=== PATIENT | female | born 1945 | race American Indian/Alaskan Native ===

== ENCOUNTER 2017-11-20 09:12 | Day surgery (SDC) | payer MEDICARE ==
[2017-11-18 14:51] VITALS: BMI 20.5
[2017-11-20] MEDS ORDERED: Propofol 10 mg/ml Inj (20 ML) ONE (11:45)
[2017-11-20] MEDS ORDERED: ePHEDrine 50 mg/ml Inj ONE (12:22)
[2017-11-20] MEDS ORDERED: Lactated Ringer's 500 ML IV ONE (13:15)
[2017-11-20 13:53] VITALS: BP 100/64; PULSE 88; RESP 16; TEMP 98; O2SAT 97
== END 2017-11-20 14:04 | disposition home or self-care (01) ==
LOC: C.ENDO 09:12
PROVIDERS: ATTEND Internal Medicine Gastroenterology
DX: R63.4 Abnormal weight loss (principal); F03.90 Unspecified dementia, unspecified severity, without behavioral disturbance, psychotic disturbance, mood disturbance, and anxiety; K64.0 First degree hemorrhoids; K57.30 Diverticulosis of large intestine without perforation or abscess without bleeding; D12.3 Benign neoplasm of transverse colon; D12.0 Benign neoplasm of cecum
CPT/HCPCS: 45380; 45385; 88305; J2704; J7120

== ENCOUNTER 2017-11-29 12:33 | Inpatient (IN) | payer MEDICARE ==
[2017-11-29 12:33] VITALS: BMI 20.5
--- NOTE | 2017-11-29 14:15 | C.PDOC ---
History Of Present Illness 72 year old female presents to ED with who reports she has increasing weakness and weight loss for the past 1-2 months. He also reports increasing inability to ambulate, secondary to weakness, poor appetite. states she had a colonoscopy 2 weeks ago. Denies any pain, cough, fever, vomiting, blood in stool, dark/black stool, blood in urine. Chief Complaint (Nursing): Weakness/Neurological Deficit History Per: Family () History/Exam Limitations: no limitations Onset/Duration Of Symptoms: Days Current Symptoms Are (Timing): Still Present Recent travel outside of the [place]: No Past Medical History Reviewed: Historical Data, Nursing Documentation, Vital Signs Vital Signs: Last Vital Signs Temp 98.1 F 11/29/17 17:56 Pulse 68 11/29/17 17:56 Resp 18 11/29/17 17:56 BP 139/73 11/29/17 17:56 Pulse Ox 100 11/29/17 17:56 - Medical History PMH: Dementia, Hypothyroidism (NO MEDICATIONS PRESENTLY) Denies: Diabetes, Fractures, Hepatitis, Chronic Kidney Disease, Seizures, Sexually Transmitted Disease Surgical History: No Surg Hx Denies: Pacemaker Family History: States: No Known Family Hx - Social History Hx Alcohol Use: No Hx Substance Use: No - Immunization History Hx Influenza Vaccination: Yes Hx Pneumococcal Vaccination: Yes Review Of Systems Except As Marked, All Systems Reviewed And Found Negative. Constitutional: Positive for: Weakness (increasing), Weight loss (increasing), Other (poor appetite). Negative for: Fever Cardiovascular: Negative for: Chest Pain Respiratory: Negative for: Cough Gastrointestinal: Negative for: Vomiting, Hematochezia, Other (no dark/black stool) Genitourinary: Negative for: Hematuria Physical Exam - Physical Exam Appears: Non-toxic, No Acute Distress Skin: Warm, Dry Head: Atraumatic, Normacephalic Eye(s): bilateral: PERRL, EOMI, Conjunctiva Pale (slightly) Neck: Supple Chest: Symmetrical Cardiovascular: Rhythm Regular, No Murmur Respiratory: Normal Breath Sounds, No Rales, No Rhonchi, No Wheezing Gastrointestinal/Abdominal: Soft, No Tenderness, No Distention Extremity: Normal ROM Neurological/Psych: Oriented x3 ED Course And Treatment - Laboratory Results Result Diagrams: 11/29/17 15:11 11/29/17 15:11 O2 Sat by Pulse Oximetry: 98 (RA) Pulse Ox Interpretation: Normal Medical Decision Making Medical Decision Making: Impression: Generalized weakness Plan: * EKG * Labs * IV fluids * Urinalysis Disposition - Disposition Disposition Time: 16:00 Condition: FAIR - Clinical Impression Clinical Impression: Muscle weakness, Dehydration - Scribe Statement The provider has reviewed the documentation as recorded by the Tiffanyibe Brian Hairston Provider Attestation: All medical record entries made by the Xiomara were at my direction and personally dictated by me. I have reviewed the chart and agree that the record accurately reflects my personal performance of the history, physical exam, medical decision making, and the department course for this patient. I have also personally directed, reviewed, and agree with the discharge instructions and disposition.
[2017-11-29] MEDS: Sodium Chloride 0.9% 1,000 ML IV SCH (15:10)
[2017-11-29 15:16] LABS: BASO % 0.5 % (0.0-2.0); EOS % 0.1 % (0.0-4.0); HEMOGLOBIN 12.4 g/dL (11.0-16.0); LYMPH % 12.5 % (20.0-40.0); MEAN CELL VOLUME 87.4 fL (81.0-99.0); MEAN CORPUSCULAR HEMOGLOBIN 28.8 pg (27.0-31.0); MEAN CORPUSCULAR HGB CONC 32.9 g/dL (33.0-37.0); MEAN PLATELET VOLUME 8.2 fL (7.2-11.7); MONO # 0.7 K/uL (0.0-0.8); MONO % 8.5 % (0.0-10.0); NEUT # 6.2 K/uL (1.8-7.0); NEUT % 78.4 % (50.0-75.0); NRBC % 0.1 % (0.0-2.0); RBC 4.31 Mil/uL (3.80-5.20); RED CELL DISTRIBUTION WIDTH 15.5 % (11.5-14.5); WHITE BLOOD COUNT 7.9 K/uL (4.8-10.8)
[2017-11-29 16:03] LABS: ALB/GLOB RATIO 1.3 (1.0-2.1); ALBUMIN 3.9 g/dL (3.5-5.0); ALT/SGPT 24 U/L (9-52); AST/SGOT 21 U/L (14-36); BLOOD UREA NITROGEN 6 mg/dL (7-17); CALCIUM 10.5 mg/dl (8.6-10.4); GFR AFRICAN-AMERICAN > 60; GFR NON-AFRICAN AMERICAN > 60; LIPASE 36 U/L (23-300)
[2017-11-29 17:54] LABS: SQUAMOUS EPITHIAL 2 /hpf (0-5); URINE BACTERIA RARE (<OCC); URINE BILIRUBIN NEGATIVE (NEGATIVE); URINE CLARITY Clear (Clear); URINE COLOR Yellow (YELLOW); URINE GLUCOSE (UA) NORMAL (Normal); URINE LEUKOCYTE ESTERASE NEG Leu/uL (Negative); URINE PROTEIN NEGATIVE (NEGATIVE); URINE UROBILINOGEN NORMAL mg/dL (0.2-1.0)
[2017-11-29] MEDS ORDERED: Potassium Chloride 20 mEq/15 ml LIQ UD PO STA (17:57)
[2017-11-29 18:06] LABS: URINE BLOOD TRACE (NEGATIVE)
[2017-11-29] MEDS ORDERED: Potassium Chloride 20 mEq/15 ml LIQ UD ONE (18:15)
--- NOTE | 2017-11-29 18:15 | RAD ---
Chest x-ray single frontal view History: Infiltrate. Comparison: 05/26/2015 Findings: Hyperinflation suggestive for COPD and or emphysematous changes. Biapical pleural thickening with upper lobe granulomatous changes. Diffuse increased interstitial lung markings. Patchy increased markings at the left lung base with a few scattered nodular densities. Lobulated pleural based density seen along the lateral aspect of the left lower lung zone. This may be related to overlying soft tissue artifact however underlying pleural-based lesion cannot be excluded. Repeat x-ray with a dedicated PA and lateral view and or correlation with chest CT would helpful for further evaluation if clinically indicated. This was not noted on the prior study dated 05/26/2015. Soft tissue calcifications seen at the level of the left breast/axilla. Correlation with mammogram would be helpful if clinically indicated. Degenerative changes in the spine. Impression: Hyperinflation suggestive for COPD and or emphysematous changes. Biapical pleural thickening with upper lobe granulomatous changes. Diffuse increased interstitial lung markings. Patchy increased markings at the left lung base with a few scattered nodular densities. Clinical correlation. Lobulated pleural based density seen along the lateral aspect of the left lower lung zone. This may be related to overlying soft tissue artifact however underlying pleural-based lesion cannot be excluded. Repeat x-ray with a dedicated PA and lateral view and or correlation with chest CT would helpful for further evaluation if clinically indicated. This was not noted on the prior study dated 05/26/2015. Soft tissue calcifications seen at the level of the left breast/axilla. Correlation with mammogram would be helpful if clinically indicated.
--- NOTE | 2017-11-29 18:43 | CP.PCM.HP ---
<Jonathan Gonzalez - Last Filed: 11/29/17 22:09> History of Present Illness - History of Present Illness History of Present Illness: Resident History & Physical for Hospitalist Service Patient is a 72 year old female with past medical history of hypothyroidism, dementia, constipation presenting with chief complaint of weakness over the past few months. This has been accompanied by loss of appetite and weight loss. Patient states that she is unable to complete normal activities as she used to. Today, patient was unable to get out of bed, which prompted her arrival to the ED. Denies falls or recent trauma. Denies fevers, chills, headache, dizziness, chest pain, shortness of breath, abdominal pain, changes in bowel movements, dysuria. Past medical history: hypothyroidism, dementia, constipation Past surgical history: ovarian cyst removal Social history: denies alcohol, tobacco, recreational drug use Family history: none Allergies: NKDA PMD: Dr. Patterson Present on Admission - Present on Admission Any Indicators Present on Admission: No Past Patient History - Past Medical History & Family History Past Medical History?: Yes - Past Social History Smoking Status: Never Smoked - CARDIAC Hx Pacemaker: No - PULMONARY Hx Respiratory Disorders: No Hx Tuberculosis: No - NEUROLOGICAL Hx Dementia: Yes Hx Seizures: No - HEENT Hx HEENT Problems: No - RENAL Hx Chronic Kidney Disease: No - ENDOCRINE/METABOLIC Hx Hypothyroidism: Yes (NO MEDICATIONS PRESENTLY) - INTEGUMENTARY Hx Dermatological Problems: No - MUSCULOSKELETAL/RHEUMATOLOGICAL Hx Fractures: No - GASTROINTESTINAL Hx Gastrointestinal Disorders: Yes (CONSTIPATION) - GENITOURINARY/GYNECOLOGICAL Hx Sexually Transmitted Disorders: No - PSYCHIATRIC Hx Substance Use: No - SURGICAL HISTORY Hx Surgeries: Yes Hx Herniorrhaphy: Yes Other/Comment: OVARIAN CYST REMOVAL - ANESTHESIA Hx Anesthesia: Yes Hx Anesthesia Reactions: No Hx Malignant Hyperthermia: No Meds Allergies/Adverse Reactions: Allergies Allergy/AdvReac Type Severity Reaction Status Date / Time No Known Allergies Allergy Verified 05/27/15 15:53 Physical Exam - Constitutional Appears: Non-toxic, No Acute Distress - Head Exam Head Exam: ATRAUMATIC, NORMOCEPHALIC - Eye Exam Eye Exam: EOMI, Normal appearance, PERRL - ENT Exam ENT Exam: Mucous Membranes Moist, Normal Exam - Neck Exam Neck exam: Positive for: Normal Inspection. Negative for: Tenderness - Respiratory Exam Respiratory Exam: Clear to Auscultation Bilateral, NORMAL BREATHING PATTERN. absent: Respiratory Distress - Cardiovascular Exam Cardiovascular Exam: REGULAR RHYTHM, +S1, +S2 - GI/Abdominal Exam GI & Abdominal Exam: Normal Bowel Sounds, Soft. absent: Organomegaly, Rebound, Rigid, Tenderness - Extremities Exam Extremities exam: Positive for: normal capillary refill, normal inspection, pedal pulses present. Negative for: calf tenderness - Back Exam Back exam: NORMAL INSPECTION - Neurological Exam Neurological exam: Alert, CN II-XII Intact, Oriented x3 - Psychiatric Exam Psychiatric exam: Normal Affect, Normal Mood - Skin Skin Exam: Dry, Intact, Normal Color Results - Vital Signs Recent Vital Signs: Last Vital Signs Temp 98.1 F 11/29/17 17:56 Pulse 68 11/29/17 17:56 Resp 18 11/29/17 17:56 BP 139/73 11/29/17 17:56 Pulse Ox 100 11/29/17 17:56 - Labs Result Diagrams: 11/29/17 15:11 11/29/17 15:11 Labs: Laboratory Results - last 24 hr 11/29/17 11/29/17 11/29/17 15:11 15:11 17:47 WBC 7.9 RBC 4.31 Hgb 12.4 Hct 37.7 MCV 87.4 MCH 28.8 MCHC 32.9 L RDW 15.5 H Plt Count 378 MPV 8.2 Neut % (Auto) 78.4 H Lymph % (Auto) 12.5 L [place] % (Auto) 8.5 Eos % (Auto) 0.1 Baso % (Auto) 0.5 Neut # (Auto) 6.2 Lymph # (Auto) 1.0 [place] # (Auto) 0.7 Eos # (Auto) 0.0 Baso # (Auto) 0.0 Sodium 145 Potassium 3.1 L Chloride 103 Carbon Dioxide 24 Anion Gap 22 H BUN 6 L Creatinine 0.7 Est GFR ( Amer) > 60 Est GFR (Non-Af Amer) > 60 Random Glucose 45 L Calcium 10.5 H Total Bilirubin 0.9 AST 21 ALT 24 Alkaline Phosphatase 52 Troponin I < 0.0120 Total Protein 6.9 Albumin 3.9 Globulin 3.0 Albumin/Globulin Ratio 1.3 Lipase 36 TSH 3rd Generation 1.06 Urine Color Yellow Urine Clarity Clear Urine pH 6.0 Ur Specific [place] 1.011 Urine Protein Negative Urine Glucose (UA) Normal Urine Ketones 2+ H Urine Blood Trace H Urine Nitrate Negative Urine Bilirubin Negative Urine Urobilinogen Normal Ur Leukocyte Esterase Neg Urine WBC (Auto) 1 Urine RBC (Auto) 1 Ur Squamous Epith Cells 2 Urine Bacteria Rare Assessment & Plan - Assessment and Plan (Free Text) Plan: Weakness - Likely secondary to hypoglycemia - Random glucose in ED 45 - Recent colonoscopy from 11/2017 shows sigmoid diverticulosis, colon polyps, internal hemorrhoids. Polyps were removed. - CXR shows hyperinflation suggestive for COPD. Biapical pleural thickening with upper lobe granulomatous changes. Patchy increased markings at left lung base with few scattered nodular densities. Please see full report. - UA shows 2+ ketones, trace blood - D5 NS at 80 ccs/hr - Accuchecks q2H - Nutrition consult - Fall precautions - Followup head CT Hypokalemia - Potassium 3.1 - Total 60 meq given in ED - Continue to monitor and replete PPX - Heparin 5000 U SC Q8H - No GI ppx indicated at this time Jonathan Gonzalez PGY-1 - Date & Time Date: 11/29/17 Time: 20:00 <Andrea Gresham - Last Filed: 11/30/17 06:36> Results - Vital Signs Recent Vital Signs: Last Vital Signs Temp 98.2 F 11/30/17 00:00 Pulse 82 11/30/17 00:00 Resp 20 11/30/17 00:00 BP 124/79 11/30/17 00:00 Pulse Ox 94 L 11/30/17 00:00 - Labs Result Diagrams: 11/29/17 15:11 11/30/17 02:44 Labs: Laboratory Results - last 24 hr 11/29/17 11/29/17 11/29/17 15:11 15:11 17:47 WBC 7.9 RBC 4.31 Hgb 12.4 Hct 37.7 MCV 87.4 MCH 28.8 MCHC 32.9 L RDW 15.5 H Plt Count 378 MPV 8.2 Neut % (Auto) 78.4 H Lymph % (Auto) 12.5 L [place] % (Auto) 8.5 Eos % (Auto) 0.1 Baso % (Auto) 0.5 Neut # (Auto) 6.2 Lymph # (Auto) 1.0 [place] # (Auto) 0.7 Eos # (Auto) 0.0 Baso # (Auto) 0.0 Sodium 145 Potassium 3.1 L Chloride 103 Carbon Dioxide 24 Anion Gap 22 H BUN 6 L Creatinine 0.7 Est GFR ( Amer) > 60 Est GFR (Non-Af Amer) > 60 Random Glucose 45 L Calcium 10.5 H Phosphorus Magnesium Total Bilirubin 0.9 AST 21 ALT 24 Alkaline Phosphatase 52 Troponin I < 0.0120 Total Protein 6.9 Albumin 3.9 Globulin 3.0 Albumin/Globulin Ratio 1.3 Lipase 36 TSH 3rd Generation 1.06 Urine Color Yellow Urine Clarity Clear Urine pH 6.0 Ur Specific [place] 1.011 Urine Protein Negative Urine Glucose (UA) Normal Urine Ketones 2+ H Urine Blood Trace H Urine Nitrate Negative Urine Bilirubin Negative Urine Urobilinogen Normal Ur Leukocyte Esterase Neg Urine WBC (Auto) 1 Urine RBC (Auto) 1 Ur Squamous Epith Cells 2 Urine Bacteria Rare 11/29/17 11/29/17 11/30/17 21:41 23:33 02:44 WBC RBC Hgb Hct MCV MCH MCHC RDW Plt Count MPV Neut % (Auto) Lymph % (Auto) [place] % (Auto) Eos % (Auto) Baso % (Auto) Neut # (Auto) Lymph # (Auto) [place] # (Auto) Eos # (Auto) Baso # (Auto) Sodium 142 Potassium 3.3 L Chloride 109 H Carbon Dioxide 24 Anion Gap 13 BUN 3 L Creatinine 0.6 L Est GFR ( Amer) > 60 Est GFR (Non-Af Amer) > 60 Random Glucose 159 H Calcium 9.1 Phosphorus 2.4 L Magnesium 1.3 L Total Bilirubin 0.7 AST 19 ALT 18 Alkaline Phosphatase 36 L D Troponin I < 0.0120 < 0.0120 Total Protein 5.3 L Albumin 2.7 L D Globulin 2.6 Albumin/Globulin Ratio 1.0 Lipase TSH 3rd Generation Urine Color Urine Clarity Urine pH Ur Specific [place] Urine Protein Urine Glucose (UA) Urine Ketones Urine Blood Urine Nitrate Urine Bilirubin Urine Urobilinogen Ur Leukocyte Esterase Urine WBC (Auto) Urine RBC (Auto) Ur Squamous Epith Cells Urine Bacteria Assessment & Plan - Date & Time Date: 11/29/17 (I have seen and examined the patient. I agree with the findings and plan of care as documented by Dr. Gonzalez. Patient with weakness. Check CT head. May be due to hypoglycemia. Accuchecks. D5 NS. Hypokalemia. Replete potassium. Monitor for acute changes.) Time: 06:35 Attending/Attestation - Attestation I have personally seen and examined this patient.: Yes I have fully participated in the care of the patient.: Yes I have reviewed all pertinent clinical information: Yes
[2017-11-29] MEDS: Dextrose 5%/0.9% NS 1,000 ML IV SCH (20:35)
[2017-11-30 01:07] VITALS: RESP 20
[2017-11-30 03:19] LABS: ALBUMIN 2.7 g/dL (3.5-5.0); ALT/SGPT 18 U/L (9-52); AST/SGOT 19 U/L (14-36); BLOOD UREA NITROGEN 3 mg/dL (7-17); CALCIUM 9.1 mg/dl (8.6-10.4); GFR AFRICAN-AMERICAN > 60; GFR NON-AFRICAN AMERICAN > 60
[2017-11-30] MEDS: Sodium Chloride 0.9% 1,000 ML IV SCH ×3 (05:31→21:05)
[2017-11-30] MEDS ORDERED: Glucagon Recombinant 1 mg Inj IM PRN (07:13)
[2017-11-30] MEDS ORDERED: Dextrose 50% SYRINGE Inj (50 ml) IV PRN (07:13)
--- NOTE | 2017-11-30 07:25 | CT ---
Date of service: 11/29/2017 PROCEDURE: CT HEAD WITHOUT CONTRAST. HISTORY: Weakness COMPARISON: None available. TECHNIQUE: Axial computed tomography images were obtained through the head/brain without intravenous contrast. Radiation dose: Total exam DLP = 874 mGy-cm. This CT exam was performed using one or more of the following dose reduction techniques: Automated exposure control, adjustment of the mA and/or kV according to patient size, and/or use of iterative reconstruction technique. FINDINGS: HEMORRHAGE: No intracranial hemorrhage. BRAIN: Moderate atrophy. Scattered focal lucencies in the subcortical and periventricular white matter suggestive for chronic microvascular ischemic change. Small left basal ganglia lacunar infarct. VENTRICLES: Unremarkable. No hydrocephalus. CALVARIUM: Unremarkable. PARANASAL SINUSES: Scattered mucosal thickening of the ethmoid air cells. MASTOID AIR CELLS: Unremarkable as visualized. No inflammatory changes. OTHER FINDINGS: Degenerative changes in the temporomandibular joints. Mild atherosclerotic disease of the intracranial arteries. IMPRESSION: No acute intracranial abnormality. Chronic microvascular ischemic changes. Moderate atrophy. Additional findings as above. These findings were preliminarily reported at 10 p.m. on 11/29/[address] Blaine Sandra from [facility].
[2017-11-30] MEDS: Dextrose 5%/0.9% NS 1,000 ML IV SCH ×2 (08:13→22:02)
[2017-11-30 09:19] LABS: BASO # 0.1 K/uL (0.0-0.2); BASO % 0.9 % (0.0-2.0); EOS # 0.1 K/uL (0.0-0.7); EOS % 1.9 % (0.0-4.0); LYMPH # 1.6 K/uL (1.0-4.3); LYMPH % 26.8 % (20.0-40.0); MEAN CELL VOLUME 86.5 fL (81.0-99.0); MEAN CORPUSCULAR HEMOGLOBIN 28.7 pg (27.0-31.0); MEAN CORPUSCULAR HGB CONC 33.2 g/dL (33.0-37.0); MEAN PLATELET VOLUME 8.5 fL (7.2-11.7); MONO # 0.7 K/uL (0.0-0.8); MONO % 11.7 % (0.0-10.0); NEUT # 3.6 K/uL (1.8-7.0); NEUT % 58.7 % (50.0-75.0); NRBC % 0.1 % (0.0-2.0); RBC 3.85 Mil/uL (3.80-5.20); RED CELL DISTRIBUTION WIDTH 15.3 % (11.5-14.5); WHITE BLOOD COUNT 6.1 K/uL (4.8-10.8)
[2017-11-30] MEDS ORDERED: Potassium Chloride 20 mEq ER Tab PO ONE ×2 (10:19→11:57)
--- NOTE | 2017-11-30 11:34 | CP.PCM.PN ---
Subjective - Date & Time of Evaluation Date of Evaluation: 11/30/17 Time of Evaluation: 10:00 - Subjective Subjective: This is a very nice 72 year old female who came in last night per famly due to concerns of weakness and fatigue for some time now. In the ER she was found to have a low blood sugar of 45. She was given oral dextrose and placed on the IVF with D5 and this morning when we saw her she was not in any acute distress. Her blood sugar was now in the 140s. Initially we thought maybe she had DM however this is not the case. Review of previous note show she had a colonscopy and negative biopsy and that her primary physician is concerned about weightloss UA shows no glucose, however is + ketones. Lab work shows low protein and low albumin. Talking to her - she just doesn't want to eat. Her breakfast was touched but almost all the food is there "I just don't want to eat" she says Objective - Vital Signs/Intake and Output Vital Signs (last 24 hours): Temp Pulse Resp BP Pulse Ox 98.5 F 76 20 115/68 100 11/30/17 08:05 11/30/17 08:05 11/30/17 08:05 11/30/17 08:05 11/30/17 08:05 Intake and Output: 11/30/17 11/30/17 06:59 18:59 Intake Total 800 Balance 800 - Medications Medications: Current Medications Cinacalcet (Sensipar) 60 mg PO DAILY [facility] Last Admin: 11/30/17 09:47 Dose: 60 mg Dextrose (Dextrose 50% Inj) 0 ml IV STAT PRN; Protocol PRN Reason: Hypoglycemia Protocol Dextrose (Glutose 15) 15 gm PO ONCE PRN; Protocol PRN Reason: Hypoglycemia Protocol Glucagon (Glucagen Diagnostic Kit) 1 mg IM STAT PRN; Protocol PRN Reason: Hypoglycemia Protocol Heparin Sodium (Porcine) (Heparin) 5,000 units SC Q8 [facility] Last Admin: 11/30/17 05:51 Dose: 5,000 units Sodium Chloride (Sodium Chloride 0.9%) 1,000 mls @ 100 mls/hr IV .Q10H [facility] Last Admin: 11/30/17 05:31 Dose: Not Given Dextrose/Sodium Chloride (Dextrose 5%/0.9% Ns 1000 Ml) 1,000 mls @ 80 mls/hr IV .[id number] [facility] Last Admin: 11/30/17 08:13 Dose: Not Given Dextrose (Dextrose 5% In Water 1000 Ml) 1,000 mls @ 0 mls/hr IV .Q0M PRN; Protocol; Per Protocol PRN Reason: Hypoglycemia Protocol Megestrol Acetate (Megace) 400 mg PO DAILY [facility] Mirtazapine (Remeron) 15 mg PO HS STACIE - Labs Labs: 11/30/17 08:58 11/30/17 02:44 - Constitutional Appears: No Acute Distress, Cachectic, Chronically Ill - Head Exam Head Exam: NORMAL INSPECTION, NORMOCEPHALIC - Eye Exam Eye Exam: EOMI, Normal appearance - ENT Exam ENT Exam: Mucous Membranes Moist - Respiratory Exam Respiratory Exam: Clear to Ausculation Bilateral, NORMAL BREATHING PATTERN - Cardiovascular Exam Cardiovascular Exam: REGULAR RHYTHM - Neurological Exam Neurological Exam: Alert, Altered, Awake Neuro motor strength exam: Left Upper Extremity: 5, Right Upper Extremity: 5, Left Lower Extremity: 4, Right Lower Extremity: 4 - Psychiatric Exam Psychiatric exam: Depressed, Flat Affect - Skin Skin Exam: Normal Color, Warm Assessment and Plan - Assessment and Plan (Free Text) Assessment: 1 Weakness - from malnutrition - she maybe very depressed. 11/30 - she reports poor appettie and not interested in food. Will try megace at this time. The malnutrion is reflected in her low protein, low albumin as well as + ketones without glucose in the urine. Keep her on the IVF with the D5 for now. - Random glucose in ED 45 - Recent colonoscopy from 11/2017 shows sigmoid diverticulosis, colon polyps, internal hemorrhoids. Polyps were removed. - CXR shows hyperinflation suggestive for COPD. Biapical pleural thickening with upper lobe granulomatous changes. Patchy increased markings at left lung base with few scattered nodular densities. Please see full report. - UA shows 2+ ketones, trace blood - D5 NS at 80 ccs/hr - Accuchecks q2H - Nutrition consult - Fall precautions - Followup head CT 2 Hypokalemia - Potassium 3.1 - Total 60 meq given in ED - Continue to monitor and replete 3 History of elevated Calcium levels, ruling out abdominal malignancy 11/30: Continue on calcium lower medications - however ordering a CT of the abdomen and pelvis because what if she has a malignancy that is causing the elevated Calcium levels as well as weightless and fatigue. She alraedy had a colonscopy recently the biopys were ok. PPX - Heparin 5000 U SC Q8H - No GI ppx indicated at this time
[2017-11-30] MEDS: Megestrol Acetate 40 mg/ml Cup PO SCH (12:04)
[2017-12-01] MEDS: Dextrose 5%/0.9% NS 1,000 ML IV SCH ×2 (01:58→17:12)
[2017-12-01] MEDS: Sodium Chloride 0.9% 1,000 ML IV SCH (06:42)
[2017-12-01 08:17] LABS: BASO % 0.5 % (0.0-2.0); EOS # 0.1 K/uL (0.0-0.7); EOS % 2.5 % (0.0-4.0); HEMOGLOBIN 9.9 g/dL (11.0-16.0); LYMPH # 1.7 K/uL (1.0-4.3); LYMPH % 35.1 % (20.0-40.0); MEAN CELL VOLUME 85.4 fL (81.0-99.0); MEAN CORPUSCULAR HEMOGLOBIN 29.4 pg (27.0-31.0); MEAN CORPUSCULAR HGB CONC 34.4 g/dL (33.0-37.0); MEAN PLATELET VOLUME 8.5 fL (7.2-11.7); MONO # 0.5 K/uL (0.0-0.8); MONO % 9.9 % (0.0-10.0); NEUT # 2.5 K/uL (1.8-7.0); NRBC % 0.1 % (0.0-2.0); RBC 3.36 Mil/uL (3.80-5.20); WHITE BLOOD COUNT 4.9 K/uL (4.8-10.8)
[2017-12-01 08:24] LABS: ALB/GLOB RATIO 0.9 (1.0-2.1); ALBUMIN 2.3 g/dL (3.5-5.0); ALT/SGPT 20 U/L (9-52); AST/SGOT 14 U/L (14-36); BLOOD UREA NITROGEN 3 mg/dL (7-17); CALCIUM 8.4 mg/dl (8.6-10.4); GFR AFRICAN-AMERICAN > 60; GFR NON-AFRICAN AMERICAN > 60
[2017-12-01] MEDS: Megestrol Acetate 40 mg/ml Cup PO SCH (09:59)
[2017-12-01] MEDS: Potassium Chloride 20 mEq ER Tab PO SCH (09:59)
--- NOTE | 2017-12-01 13:45 | CT ---
CT chest, abdomen, and pelvis without IV contrast Indication: Rule out malignancy Technique: Contiguous axial images of the chest, abdomen, and pelvis without oral or IV contrast. Coronal and Sagittal reformats generated and reviewed. This CT exam was performed using 1 or more of the following dose reduction techniques: Automated exposure control, adjustment of the MAA and/or kV according to patient size, and/or use of iterative reconstruction technique. Radiation dose: Total exam DLP = 280.41 MGy-cm. Comparison: None available. Findings: Visualized portions of the inferior thyroid gland appear unremarkable. The mediastinal and hilar vascular structures appear within normal limits. The heart appears within normal limits of size. Mild centrilobular emphysema. Mild [id number] basilar atelectasis. Mild bronchiectasis at the lung bases. Trace bilateral pleural effusions. No suspicious pulmonary nodules measuring greater than 5 mm. Moderate hiatal hernia. 1.2 cm subcortical low-density lesion, medial left upper pole kidney. The noncontrast liver, spleen, right kidney, pancreas, adrenal glands, and gallbladder appear grossly unremarkable. The stomach is nondistended. Lack of oral contrast limits evaluation for bowel pathology. The bowel loops appear within normal limits of caliber without evidence of intestinal obstruction. Diverticulosis without CT evidence of acute diverticulitis. The appendix appears within normal limits of caliber. No secondary signs of acute appendicitis.There is no definite free air. Uterus is present. The urinary bladder appears unremarkable. Degenerative changes of the osseous structures. Scattered punctate sclerotic foci, left femoral head, right acetabular roof, sacrum. Impression: 1.2 cm subcortical low-density lesion arising from the medial left upper pole kidney. This finding cannot be adequately evaluated in the absence of IV contrast. Ultrasound may also be considered for further evaluation if indicated. Punctate indeterminate regions of sclerosis as described above. Diverticulosis without CT evidence of acute diverticulitis. Trace bilateral pleural effusions. Additional findings as above. Preliminary impression was provided by [facility].
--- NOTE | 2017-12-01 14:19 | CP.PCM.PN ---
<Brii Ibrahim - Last Filed: 12/01/17 18:57> Subjective - Date & Time of Evaluation Date of Evaluation: 12/01/17 Time of Evaluation: 09:20 - Subjective Subjective: PGY-1 Brii Ibrahim D.O. Medicine progress note for Dr. Roberto Christianson's service: Patient was seen and examined this morning. She does not appear in acute distress. She provides minimal eye contact and vague answers to questions. Occasionally questions/statements need to be repeated to patient before she answers. She is oriented to person and place but does not know the year or month ("1999 and "). She is able to state that she ate breakfast but cannot recall what she ate despite eating less than 20 minutes ago. She reports not having an appetite but expresses understanding that it is important to eat. Patient cannot offer any examples of what she enjoys doing. She denies any pain. She cannot recall her last BM but denies diarrhea and constipation. Objective - Vital Signs/Intake and Output Vital Signs (last 24 hours): Temp Pulse Resp BP Pulse Ox 98.5 F 80 20 95/60 L 97 12/01/17 08:00 12/01/17 08:00 12/01/17 08:00 12/01/17 08:00 12/01/17 12:00 Intake and Output: 12/01/17 12/01/17 06:59 18:59 Intake Total 1660 Balance 1660 - Medications Medications: Current Medications Cinacalcet (Sensipar) 60 mg PO DAILY [facility] Last Admin: 12/01/17 09:59 Dose: 60 mg Dextrose (Dextrose 50% Inj) 0 ml IV STAT PRN; Protocol PRN Reason: Hypoglycemia Protocol Dextrose (Glutose 15) 15 gm PO ONCE PRN; Protocol PRN Reason: Hypoglycemia Protocol Glucagon (Glucagen Diagnostic Kit) 1 mg IM STAT PRN; Protocol PRN Reason: Hypoglycemia Protocol Heparin Sodium (Porcine) (Heparin) 5,000 units SC Q8 [facility] Last Admin: 12/01/17 13:00 Dose: 5,000 units Sodium Chloride (Sodium Chloride 0.9%) 1,000 mls @ 100 mls/hr IV .Q10H [facility] Last Admin: 12/01/17 06:42 Dose: Not Given Dextrose/Sodium Chloride (Dextrose 5%/0.9% Ns 1000 Ml) 1,000 mls @ 80 mls/hr IV .[id number] [facility] Last Admin: 12/01/17 01:58 Dose: 80 mls/hr Dextrose (Dextrose 5% In Water 1000 Ml) 1,000 mls @ 0 mls/hr IV .Q0M PRN; Protocol; Per Protocol PRN Reason: Hypoglycemia Protocol Megestrol Acetate (Megace) 400 mg PO DAILY [facility] Last Admin: 12/01/17 09:59 Dose: 400 mg Mirtazapine (Remeron) 15 mg PO HS [facility] Last Admin: 11/30/17 22:14 Dose: 15 mg Potassium Chloride (K-Dur 20 Meq Er Tab) 20 meq PO DAILY [facility] Last Admin: 12/01/17 09:59 Dose: 20 meq - Labs Labs: 12/01/17 07:55 12/01/17 07:55 - Constitutional Appears: Non-toxic, No Acute Distress, Older Than Stated Age - Head Exam Head Exam: ATRAUMATIC, NORMAL INSPECTION, NORMOCEPHALIC - Eye Exam Eye Exam: EOMI, Normal appearance - ENT Exam ENT Exam: Mucous Membranes Moist, Normal Exam - Neck Exam Neck Exam: Normal Inspection - Respiratory Exam Respiratory Exam: Clear to Ausculation Bilateral, NORMAL BREATHING PATTERN - Cardiovascular Exam Cardiovascular Exam: REGULAR RHYTHM, +S1, +S2 - GI/Abdominal Exam GI & Abdominal Exam: Soft, Normal Bowel Sounds. absent: Tenderness - Rectal Exam Rectal Exam: Deferred - Extremities Exam Extremities Exam: Normal Capillary Refill, Normal Inspection. absent: Pedal Edema - Back Exam Back Exam: NORMAL INSPECTION. absent: tenderness - Neurological Exam Neurological Exam: Alert, Awake Additional comments: oriented to person and place - Psychiatric Exam Psychiatric exam: Flat Affect Additional comments: paucity of speech, poor eye contact - Skin Skin Exam: Dry, Intact, Normal Color, Warm Assessment and Plan - Assessment and Plan (Free Text) Assessment: Patient is a 72 yo female who was brought in by her family due to decreased appetite and weight and generalized weakness. She was found to be hypoglycemic with a BG of 45. Plan: Weakness- likely 2/2 to hypoglycemia with malnutrition, potential causes include depression, malignancy - Low total protein, low albumin, 2+ ketones in urine, BG in ED 45 - D5 NS @ 80 - Colonoscopy from 11/2017: sigmoid diverticulosis, colon polyps, internal hemorrhoids. Polyps were removed. Negative pathology. - CXR 11/29: Hyperinflation suggestive for COPD. Biapical pleural thickening with upper lobe granulomatous changes. Patchy increased markings at left lung base with few scattered nodular densities. Lobulated pleural based density seen along the lateral aspect of the left lower lung zone. This may be related to overlying soft tissue artifact however underlying pleural-based lesion cannot be excluded. Repeat x-ray with a dedicated PA and lateral view and or correlation with chest CT would helpful for further evaluation if clinically indicated. This was not noted on the prior study dated 05/26/2015. - CT head 11/29: no acute pathology, moderate atrophy with microvascular ischemic changes - CT chest/A/P 11/30: Degenerative changes of the osseous structures. Scattered punctate sclerotic foci, left femoral head, right acetabular roof, sacrum. Diverticulosis without CT evidence of acute diverticulitis. Trace bilateral pleural effusions. - Fall precautions - Accuchecks q2hrs - Hypoglycemia protocol - Remeron 15 mg PO QHS - Ensure TID - Nutrition consult - Palliative consult Anemia, acute- Hgb 12.4->11->9.9 - F/u stool occult blood Soft tissue mass L breast - CXR 11/29: Soft tissue calcifications seen at the level of the left breast/ axilla. Correlation with mammogram would be helpful if clinically indicated. - F/u L breast u/s L kidney cyst - CT chest/A/P 11/30: 1.2 cm subcortical low-density lesion arising from the medial left upper pole kidney. This finding cannot be adequately evaluated in the absence of IV contrast. Ultrasound may also be considered for further evaluation if indicated. - F/u b/l renal u/s Hypokalemia - 2.8 - KCl 20 mEq PO daily - Monitor in AM - Replete as needed Hypomagnesemia- 1.2 - Monitor in AM - Replete as needed Hypophosphatemia- 1.3 - Monitor in AM - Replete as needed Elevated Calcium on admission (10.5), improving with tx- r/o malignancy - Cinacalcet 60 mg PO daily - CT chest/A/P 11/30: 1.2 cm subcortical low-density lesion, medial left upper pole kidney. The noncontrast liver, spleen, right kidney, pancreas, adrenal glands, and gallbladder appear grossly unremarkable. The stomach is nondistended. Lack of oral contrast limits evaluation for bowel pathology. The bowel loops appear within normal limits of caliber without evidence of intestinal obstruction. Diverticulosis without CT evidence of acute diverticulitis. The appendix appears within normal limits of caliber. No secondary signs of acute appendicitis.There is no definite free air. - Recent colonoscopy this month with negative biopsies ?Psychiatric history - Will obtain medical records from [facility] and PMD Dr. Patterson Will obtain further collateral from family: - Son Barry [phone] - Daughter Payton [phone] IVF: D5/NS @ 80 mL/hr VTE ppx: Heparin 5000 U SC Q8H GI ppx: not indicated Diet: regular Code status: full code <Roberto Christianson - Last Filed: 12/01/17 19:50> Objective - Vital Signs/Intake and Output Vital Signs (last 24 hours): Temp Pulse Resp BP Pulse Ox 97.9 F 87 20 91/57 L 97 12/01/17 15:00 12/01/17 15:00 12/01/17 15:00 12/01/17 15:00 12/01/17 15:00 - Medications Medications: Current Medications Cinacalcet (Sensipar) 60 mg PO DAILY [facility] Last Admin: 12/01/17 09:59 Dose: 60 mg Dextrose (Dextrose 50% Inj) 0 ml IV STAT PRN; Protocol PRN Reason: Hypoglycemia Protocol Dextrose (Glutose 15) 15 gm PO ONCE PRN; Protocol PRN Reason: Hypoglycemia Protocol Glucagon (Glucagen Diagnostic Kit) 1 mg IM STAT PRN; Protocol PRN Reason: Hypoglycemia Protocol Heparin Sodium (Porcine) (Heparin) 5,000 units SC Q8 [facility] Last Admin: 12/01/17 13:00 Dose: 5,000 units Dextrose/Sodium Chloride (Dextrose 5%/0.9% Ns 1000 Ml) 1,000 mls @ 80 mls/hr IV .[id number] [facility] Last Admin: 12/01/17 17:12 Dose: 80 mls/hr Dextrose (Dextrose 5% In Water 1000 Ml) 1,000 mls @ 0 mls/hr IV .Q0M PRN; Protocol; Per Protocol PRN Reason: Hypoglycemia Protocol Potassium Phosphate 15 mmole/ (Sodium Chloride) 255 mls @ 42.5 mls/hr IVPB ONCE ONE Stop: 12/01/17 21:59 Last Admin: 12/01/17 18:02 Dose: 42.5 mls/hr Mirtazapine (Remeron) 15 mg PO HS [facility] Last Admin: 11/30/17 22:14 Dose: 15 mg Potassium Chloride (K-Dur 20 Meq Er Tab) 20 meq PO DAILY [facility] Last Admin: 12/01/17 09:59 Dose: 20 meq - Labs Labs: 12/01/17 07:55 12/01/17 07:55 Attending/Attestation - Attestation I have personally seen and examined this patient.: Yes I have fully participated in the care of the patient.: Yes I have reviewed all pertinent clinical information, including history, physical exam and plan: Yes Notes (Text): 12/01/17 19:31 Patient was seen and examined at 2:45 PM 12/01/17 Care of this patient was gone over in detail with resident. Review of prior records indicate that this patient was here in the ER in May 2015 and was transferred to inpatient Psychiatry when she was hearing voices. Spoke at length with Son Barry [phone] who explained that the patient was on unspecified psychiatric medications and is not sure whether she is still on them as he is not aware whether she has followed up with Psychiatry (he does not live with patient). Medicine Team will need to obtain records from [facility] from May 2015. Resident to obtain consent and then fax to [facility] medical records on morning to see if this patient suffers from Depression or Schizophrenia and if she is not on any medications for these issues then this may be contributing to her not eating (which the Son stated had been going for months now). Reordered Ensure Enlive Bryant which the patient stated that she would drink 3 times a day. Explained that if there was NO proper nutrition then there could not be adequate participation in Physical Therapy. Also noted that there was a soft tissue calcification noted in Left Breast/ Axilla. Mammogram done earlier in May 2017 was negative. Regardless considering the hypercalcemia, the sclerotic lesions on the Left Femur, Acetabulum, and the Sacrum (as seen on CT Abdomen/Pelvis), and lobulated pleural based density in lateral aspect of left lower lung zone (seen on Chest X Ray), we have ordered Left Breast U/S that will need to be followed up. F/U Renal U/S for further evaluation of the 1.2 cm subcortical low density lesion in left upper pole kidney. Potassium, Magnesium, and Phosphorous were repleated today. F/U morning 12/02/17 labs. F/U Stool Occult Blood due to drop in HgB/Hct F/U Palliative Care Consult with Nurse Brock 12/02/17 to discuss goals of care with family: Son Barry ([phone]), Daughter Payton ([phone]), and Aaron ([phone]) Roberto Christianson D.O.
[2017-12-01] MEDS ORDERED: Potassium Chloride 20 mEq ER Tab PO ONE (15:30)
[2017-12-01] MEDS ORDERED: Potassium Phosphate 15 MMOLE in Sodium Chloride 0.9% 250 ML IVPB ONE (16:00)
[2017-12-01] MEDS: Magnesium Sulfate 1 gm in D5W 1 GM/100 ML BAG IVPB SCH ×2 (16:52→17:20)
--- NOTE | 2017-12-02 06:42 | CP.PCM.PN ---
Addendum entered and electronically signed by Brii Ibrahim DO 12/02/17 14 :20: Obtained medical records from [facility]. Patient was in psychiatric unit in May 2015 with paranoid delusions and auditory hallucinations. She was discharged on Haldol. Patient was previously on Celexa. She was diagnosed with psychosis NOS. She was previously hospitalized with psychosis 7-10 years ago, but these records are unavailable. According to patient's PMD, Dr. Patterson, she is currently only on Remeron. Please see full records in patient's paper chart. Original Note: <Brii Ibrahim - Last Filed: 12/02/17 13:41> Subjective - Date & Time of Evaluation Date of Evaluation: 12/02/17 Time of Evaluation: 09:30 - Subjective Subjective: PGY-1 Brii Ibrahim D.O. Medicine progress note for Dr. Zeeshan Smith's service: Patient was seen and examined this morning. She is sitting upright on the side of her bed eating breakfast. She states that she is confused and [place] the [place]. She says she knows she was in [facility] yesterday, but she thinks she was moved to the train station last night and is now trying to get home. She does not recall her family visiting her yesterday. She does not know the year ("1999 and..."). Overall she states she is feeling well. She denies pain. She complains of constipation and would like milk of magnesia. Med student confirmed medications with patients pharmacy ([facility]) and PMD, Dr. Patterson. Restarted Namenda 10 mg PO BID. Objective - Vital Signs/Intake and Output Vital Signs (last 24 hours): Temp Pulse Resp BP Pulse Ox 98.3 F 78 20 116/75 99 12/02/17 00:00 12/02/17 00:00 12/02/17 00:00 12/02/17 00:00 12/02/17 00:00 Intake and Output: 12/01/17 12/02/17 18:59 06:59 Intake Total 1770 Balance 1770 - Medications Medications: Current Medications Cinacalcet (Sensipar) 60 mg PO DAILY [facility] Last Admin: 12/01/17 09:59 Dose: 60 mg Dextrose (Dextrose 50% Inj) 0 ml IV STAT PRN; Protocol PRN Reason: Hypoglycemia Protocol Dextrose (Glutose 15) 15 gm PO ONCE PRN; Protocol PRN Reason: Hypoglycemia Protocol Glucagon (Glucagen Diagnostic Kit) 1 mg IM STAT PRN; Protocol PRN Reason: Hypoglycemia Protocol Heparin Sodium (Porcine) (Heparin) 5,000 units SC Q8 [facility] Last Admin: 12/02/17 05:37 Dose: 5,000 units Dextrose/Sodium Chloride (Dextrose 5%/0.9% Ns 1000 Ml) 1,000 mls @ 80 mls/hr IV .[id number] [facility] Last Admin: 12/01/17 17:12 Dose: 80 mls/hr Dextrose (Dextrose 5% In Water 1000 Ml) 1,000 mls @ 0 mls/hr IV .Q0M PRN; Protocol; Per Protocol PRN Reason: Hypoglycemia Protocol Mirtazapine (Remeron) 15 mg PO HS [facility] Last Admin: 12/01/17 22:25 Dose: 15 mg Potassium Chloride (K-Dur 20 Meq Er Tab) 20 meq PO DAILY [facility] Last Admin: 12/01/17 09:59 Dose: 20 meq - Labs Labs: 12/01/17 07:55 12/01/17 07:55 - Constitutional Appears: Non-toxic, No Acute Distress, Confused - Head Exam Head Exam: ATRAUMATIC, NORMAL INSPECTION, NORMOCEPHALIC - Eye Exam Eye Exam: EOMI, Normal appearance - ENT Exam ENT Exam: Mucous Membranes Moist, Normal Exam - Neck Exam Neck Exam: Normal Inspection - Respiratory Exam Respiratory Exam: Clear to Ausculation Bilateral, NORMAL BREATHING PATTERN. absent: Respiratory Distress - Cardiovascular Exam Cardiovascular Exam: REGULAR RHYTHM, +S1, +S2. absent: Murmur - GI/Abdominal Exam GI & Abdominal Exam: Soft, Normal Bowel Sounds. absent: Tenderness - Rectal Exam Rectal Exam: Deferred - Extremities Exam Extremities Exam: Normal Inspection - Back Exam Back Exam: NORMAL INSPECTION - Neurological Exam Neurological Exam: Alert, Awake Additional comments: oriented to person only - Psychiatric Exam Psychiatric exam: Normal Affect, Normal Mood Additional comments: reports feeling depressed and wanting to go home - Skin Skin Exam: Dry, Intact, Normal Color, Warm Assessment and Plan - Assessment and Plan (Free Text) Assessment: Patient is a 72 yo female who was brought in by her family due to decreased appetite and weight and generalized weakness. She was found to be hypoglycemic with a BG of 45. Plan: Weakness, improving- likely 2/2 to hypoglycemia with malnutrition, potential causes include depression, malignancy - Low total protein, low albumin, 2+ ketones in urine, BG in ED 45 - D5/NS @ 80 mL/hr - Colonoscopy from 11/2017: sigmoid diverticulosis, colon polyps, internal hemorrhoids. Polyps were removed. Negative pathology. - CXR 11/29: Hyperinflation suggestive for COPD. Biapical pleural thickening with upper lobe granulomatous changes. Patchy increased markings at left lung base with few scattered nodular densities. Lobulated pleural based density seen along the lateral aspect of the left lower lung zone. This may be related to overlying soft tissue artifact however underlying pleural-based lesion cannot be excluded. Repeat x-ray with a dedicated PA and lateral view and or correlation with chest CT would helpful for further evaluation if clinically indicated. This was not noted on the prior study dated 05/26/2015. - CT chest/A/P 11/30: Degenerative changes of the osseous structures. Scattered punctate sclerotic foci, left femoral head, right acetabular roof, sacrum. Diverticulosis without CT evidence of acute diverticulitis. Trace bilateral pleural effusions. - F/u CEA, Ca 19-9, CA 125 - Fall precautions - Accuchecks ACHS - Hypoglycemia protocol - Continue home Remeron 15 mg PO QHS - Ensure Enlive TID - Collateral from Dr. Patterson- lost 6 lb over 1 month - Nutrition consult- regular diet - Palliative consult- full code Dementia - CT head 11/29: no acute pathology, moderate atrophy with microvascular ischemic changes - Continue home Memantine 10 mg PO BID Anemia, acute, stable- Hgb 12.4->11->9.9->11.9 - Suspect yesterdays blood draw may have been diluted - F/u stool occult blood - F/u iron studies Soft tissue mass L breast - Screening mammogram 05/2017: negative - CXR 11/29: Soft tissue calcifications seen at the level of the left breast/ axilla. Correlation with mammogram would be helpful if clinically indicated. - L breast u/s 12/01: benign fibroadenoma, f/u in 12 months B/l renal cysts - CT chest/A/P 11/30: 1.2 cm subcortical low-density lesion arising from the medial left upper pole kidney. This finding cannot be adequately evaluated. in the absence of IV contrast. Ultrasound may also be considered for further evaluation if indicated. - B/l renal u/s- b/l hypoechoic renal cysts Hypokalemia - 3.3 - KCl 20 mEq PO daily - Monitor in AM - Replete as needed Hypomagnesemia- 1.6 - Monitor in AM - Replete as needed Hypophosphatemia- 1.3 - Monitor in AM - Replete as needed Elevated Calcium on admission (10.5), improving with tx- r/o malignancy - Continue home Cinacalcet 60 mg PO daily - CT chest/A/P 11/30: 1.2 cm subcortical low-density lesion, medial left upper pole kidney. The noncontrast liver, spleen, right kidney, pancreas, adrenal glands, and gallbladder appear grossly unremarkable. The stomach is nondistended. Lack of oral contrast limits evaluation for bowel pathology. The bowel loops appear within normal limits of caliber without evidence of intestinal obstruction. Diverticulosis without CT evidence of acute diverticulitis. The appendix appears within normal limits of caliber. No secondary signs of acute appendicitis. There is no definite free air. - Recent colonoscopy this month with negative biopsies H/o psychosis- involuntary admission to to [facility] in 2015 - Will obtain medical records from [facility] - Not on any antipsychotics per Dr. Patterson Will obtain further collateral from family if necessary: - Son Barry [phone] - Daughter Payton [phone] IVF: D5/NS @ 80 mL/hr VTE ppx: Heparin 5000 U SC Q8H GI ppx: not indicated Diet: regular, Ensure Enlive x3 Code status: full code <Zeeshan Smith H - Last Filed: 12/02/17 16:13> Objective - Vital Signs/Intake and Output Vital Signs (last 24 hours): Temp Pulse Resp BP Pulse Ox 98.4 F 96 H 20 142/90 98 12/02/17 07:27 12/02/17 07:27 12/02/17 07:27 12/02/17 07:27 12/02/17 07:27 Intake and Output: 12/02/17 12/02/17 06:59 18:59 Intake Total 1770 1010 Balance 1770 1010 - Medications Medications: Current Medications Cinacalcet (Sensipar) 60 mg PO DAILY [facility] Last Admin: 12/02/17 09:46 Dose: 60 mg Dextrose (Dextrose 50% Inj) 0 ml IV STAT PRN; Protocol PRN Reason: Hypoglycemia Protocol Dextrose (Glutose 15) 15 gm PO ONCE PRN; Protocol PRN Reason: Hypoglycemia Protocol Glucagon (Glucagen Diagnostic Kit) 1 mg IM STAT PRN; Protocol PRN Reason: Hypoglycemia Protocol Heparin Sodium (Porcine) (Heparin) 5,000 units SC Q8 [facility] Last Admin: 12/02/17 05:37 Dose: 5,000 units Dextrose/Sodium Chloride (Dextrose 5%/0.9% Ns 1000 Ml) 1,000 mls @ 80 mls/hr IV .[id number] [facility] Last Admin: 12/02/17 14:01 Dose: Not Given Memantine (Namenda) 10 mg PO BID [facility] Mirtazapine (Remeron) 15 mg PO HS [facility] Last Admin: 12/01/17 22:25 Dose: 15 mg Potassium Chloride (K-Dur 20 Meq Er Tab) 20 meq PO DAILY [facility] Last Admin: 12/02/17 09:46 Dose: 20 meq - Labs Labs: 12/02/17 08:24 12/02/17 08:24 Attending/Attestation - Attestation I have personally seen and examined this patient.: Yes I have fully participated in the care of the patient.: Yes I have reviewed all pertinent clinical information, including history, physical exam and plan: Yes Notes (Text): 12/02/17 16:11 Medical attending: Patient was seen and examined by me. Agree with the above note by the resident The patient was not in nay acute distress. She this morning had a better appettie and was able to take most of her meals. As mentioned previously there was concern of malignancy - the CT was stable and the breast ultrasound as well. Also will check CEA, CA 19 9 and CA 125 as well. She has already had a recent colonscopy with negative biopsies Will consider discharge if the patient is stable Thank you Zeeshan Smith
[2017-12-02] MEDS ORDERED: Magnesium Hydroxide Susp 30 ml UD PO ONE (08:15)
[2017-12-02 08:34] LABS: BASO # 0.1 K/uL (0.0-0.2); BASO % 1.1 % (0.0-2.0); EOS # 0.1 K/uL (0.0-0.7); EOS % 1.7 % (0.0-4.0); HEMOGLOBIN 11.6 g/dL (11.0-16.0); LYMPH % 33.1 % (20.0-40.0); MEAN CELL VOLUME 87.1 fL (81.0-99.0); MEAN CORPUSCULAR HEMOGLOBIN 29.1 pg (27.0-31.0); MEAN CORPUSCULAR HGB CONC 33.5 g/dL (33.0-37.0); MEAN PLATELET VOLUME 9.6 fL (7.2-11.7); MONO # 0.5 K/uL (0.0-0.8); MONO % 7.9 % (0.0-10.0); NEUT # 3.4 K/uL (1.8-7.0); NEUT % 56.2 % (50.0-75.0); NRBC % 0.1 % (0.0-2.0); RBC 3.98 Mil/uL (3.80-5.20); RED CELL DISTRIBUTION WIDTH 15.4 % (11.5-14.5)
[2017-12-02] MEDS: Dextrose 5%/0.9% NS 1,000 ML IV SCH ×2 (08:44→14:01)
--- NOTE | 2017-12-02 09:08 | US ---
Renal ultrasound History: Renal cyst. Comparison: 11/30/2017 Technique: Real-time sonography was performed through the kidneys. Findings: Right kidney: 9.3 x 3.9 x 4.9 centimeters. No calculi or hydronephrosis. Midpole hypoechoic cyst measuring 1.0 x 1.0 x .8 centimeters. Upper pole heterogeneous hypoechoic cyst measuring 5 x 6 x 7 millimeters. Left Kidney: 9.8 x 3.7 x 4.1 centimeters. No calculi or hydronephrosis. Upper pole hypoechoic cyst measuring 1.1 x 0.9 x 1.0 centimeters. Lower pole hypoechoic cyst measuring 1.1 x 0.8 x 1.1 centimeters. Visualized aorta preserved. Visualized urinary bladder preserved. Impression: Bilateral renal cysts as described above. Correlation with multiphasic CT or MR may be helpful for further evaluation if clinically indicated.
[2017-12-02 09:11] LABS: ALB/GLOB RATIO 1.1 (1.0-2.1); ALBUMIN 3.1 g/dL (3.5-5.0); ALT/SGPT 19 U/L (9-52); AST/SGOT 21 U/L (14-36); BLOOD UREA NITROGEN 7 mg/dL (7-17); CALCIUM 9.2 mg/dl (8.6-10.4); GFR AFRICAN-AMERICAN > 60; GFR NON-AFRICAN AMERICAN > 60
--- NOTE | 2017-12-02 09:20 | US ---
Date of service: 12/01/2017 HISTORY: old female who presents for left breast ultrasound based on a soft tissue calcification at the left breast/ axillary level on the chest x-ray 11/29/2017 11/30/2017 CT chest abdomen and pelvis selected images are noted. No personal history of breast cancer. A maternal aunt with breast cancer is noted. No current complaints offered. The case is presented to me following day for interpretation. TECHNIQUE: Sonographic evaluation of both breast was performed. FINDINGS: LEFT BREAST: In the lateral left breast at approximately o'clock at least 8 cm from the nipple, a calcified shadowing nodule measuring 1.3 x 0.9 x 1.5 cm in size is noted. The constellation of findings on all imaging modalities is most consistent with a benign degenerating calcified fibroadenoma. No axillary lymphadenopathy identified. IMPRESSION: No sonographic evidence of malignancy. 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 No further workup needed BIRADS: BIRADS 2 Benign finding Recommendation: Continue annual screening mammography, as per ACR guidelines.
[2017-12-02] MEDS: Potassium Chloride 20 mEq ER Tab PO SCH (09:46)
[2017-12-02] MEDS ORDERED: Potassium Phosphate 15 MMOLE in Sodium Chloride 0.9% 250 ML IVPB ONE (10:00)
--- NOTE | 2017-12-02 10:38 | CP.PCM.CON ---
History of Present Illness - History of Present Illness History of Present Illness: Palliative consult requested by Doctor Alexandria for goals of care discussion Patient is a 72 yo AA lady brought to ED by her with concerns about worsened generalized weakness, weight loss and difficulties ambulatng over last 2 months. Patient as treated at Inpatient Psychiatry unit in 2016 for hearing voices. patient has Hx of Dementia and on that admission Dg of possible Schizophrenia was made. Patient's son Mr. Reddy was not sure if patient was taking meds for it. Her last colonoscopy was 2 weeks ago. [place] [facility] [place] CXR on this admission was significant for Hyperinflation due to COPD, upper granulomatous changes and interstitial lung markings. Metastatic disease is considered due to elevated Ca level , but no final diagnosis was made just yet. Patient had mammogram done in June for left breast calcification, and was negative. On this admission US Left breast was done and is negative for malignancy. Renal US reveals small cysts B/L PMH: Dementia Soc. Hx: , lives at home, denies smoking, denies ETOH Fam. Hx: denied as per medical record, unobtainable from patient due to condition Review of Systems - Review of Systems All systems: reviewed and no additional remarkable complaints except Review of Systems: ROS unobtainable from patient due t confusion. ROS btainedfrom nrsing. Per nursing patient needs frequent reminders t eat and drink water, is mostly on bed rest, afebrile Past Patient History - Past Medical History & Family History Past Medical History?: Yes - Past Social History Smoking Status: Never Smoked - CARDIAC Hx Pacemaker: No - PULMONARY Hx Respiratory Disorders: No Hx Tuberculosis: No - NEUROLOGICAL Hx Dementia: Yes Hx Seizures: No - HEENT Hx HEENT Problems: No - RENAL Hx Chronic Kidney Disease: No - ENDOCRINE/METABOLIC Hx Hypothyroidism: Yes (NO MEDICATIONS PRESENTLY) - INTEGUMENTARY Hx Dermatological Problems: No - MUSCULOSKELETAL/RHEUMATOLOGICAL Hx Falls: No - GASTROINTESTINAL Hx Gastrointestinal Disorders: Yes (CONSTIPATION) - GENITOURINARY/GYNECOLOGICAL Hx Sexually Transmitted Disorders: No - PSYCHIATRIC Hx Substance Use: No - SURGICAL HISTORY Hx Surgeries: Yes Hx Herniorrhaphy: Yes Other/Comment: OVARIAN CYST REMOVAL - ANESTHESIA Hx Anesthesia: Yes Hx Anesthesia Reactions: No Hx Malignant Hyperthermia: No Meds Allergies/Adverse Reactions: Allergies Allergy/AdvReac Type Severity Reaction Status Date / Time No Known Allergies Allergy Verified 05/27/15 15:53 - Medications Medications: Current Medications Cinacalcet (Sensipar) 60 mg PO DAILY [facility] Last Admin: 12/02/17 09:46 Dose: 60 mg Dextrose (Dextrose 50% Inj) 0 ml IV STAT PRN; Protocol PRN Reason: Hypoglycemia Protocol Dextrose (Glutose 15) 15 gm PO ONCE PRN; Protocol PRN Reason: Hypoglycemia Protocol Glucagon (Glucagen Diagnostic Kit) 1 mg IM STAT PRN; Protocol PRN Reason: Hypoglycemia Protocol Heparin Sodium (Porcine) (Heparin) 5,000 units SC Q8 [facility] Last Admin: 12/02/17 05:37 Dose: 5,000 units Dextrose/Sodium Chloride (Dextrose 5%/0.9% Ns 1000 Ml) 1,000 mls @ 80 mls/hr IV .[id number] [facility] Last Admin: 12/02/17 08:44 Dose: 80 mls/hr Dextrose (Dextrose 5% In Water 1000 Ml) 1,000 mls @ 0 mls/hr IV .Q0M PRN; Protocol; Per Protocol PRN Reason: Hypoglycemia Protocol Potassium Phosphate 15 mmole/ (Sodium Chloride) 255 mls @ 42.5 mls/hr IVPB ONCE ONE Stop: 12/02/17 15:59 Last Admin: 12/02/17 10:03 Dose: 42.5 mls/hr Memantine (Namenda) 10 mg PO DAILY [facility] Mirtazapine (Remeron) 15 mg PO HS [facility] Last Admin: 12/01/17 22:25 Dose: 15 mg Potassium Chloride (K-Dur 20 Meq Er Tab) 20 meq PO DAILY [facility] Last Admin: 12/02/17 09:46 Dose: 20 meq Physical Exam - Constitutional Appears: No Acute Distress, Chronically Ill - Head Exam Head Exam: ATRAUMATIC, NORMAL INSPECTION, NORMOCEPHALIC - Eye Exam Eye Exam: EOMI, Normal appearance, PERRL Pupil Exam: NORMAL ACCOMODATION, PERRL - ENT Exam ENT Exam: Mucous Membranes Moist, Normal Exam - Neck Exam Neck exam: Positive for: Normal Inspection - Respiratory Exam Respiratory Exam: Decreased Breath Sounds, NORMAL BREATHING PATTERN - Cardiovascular Exam Cardiovascular Exam: REGULAR RHYTHM - GI/Abdominal Exam GI & Abdominal Exam: Normal Bowel Sounds, Soft - Rectal Exam Rectal Exam: Deferred - Extremities Exam Extremities exam: Positive for: normal inspection - Back Exam Back exam: NORMAL INSPECTION - Neurological Exam Neurological exam: Alert, Altered - Psychiatric Exam Psychiatric exam: Flat Affect - Skin Skin Exam: Dry, Intact, Normal Color, Warm Results - Vital Signs Recent Vital Signs: Last Vital Signs Temp 98.4 F 12/02/17 07:27 Pulse 96 H 12/02/17 07:27 Resp 20 12/02/17 07:27 BP 142/90 12/02/17 07:27 Pulse Ox 98 12/02/17 07:27 - Labs Result Diagrams: 12/02/17 08:24 12/02/17 08:24 Labs: Laboratory Results - last 24 hr 11/30/17 11/30/17 11/30/17 00:05 00:08 00:35 WBC RBC Hgb Hct MCV MCH MCHC RDW Plt Count MPV Neut % (Auto) Lymph % (Auto) [place] % (Auto) Eos % (Auto) Baso % (Auto) Neut # (Auto) Lymph # (Auto) [place] # (Auto) Eos # (Auto) Baso # (Auto) Sodium Potassium Chloride Carbon Dioxide Anion Gap BUN Creatinine Est GFR ( Amer) Est GFR (Non-Af Amer) POC Glucose (mg/dL) 56 L 60 L 90 Random Glucose Calcium Phosphorus Magnesium Total Bilirubin AST ALT Alkaline Phosphatase Total Protein Albumin Globulin Albumin/Globulin Ratio 11/30/17 11/30/17 11/30/17 02:09 03:48 07:13 WBC RBC Hgb Hct MCV MCH MCHC RDW Plt Count MPV Neut % (Auto) Lymph % (Auto) [place] % (Auto) Eos % (Auto) Baso % (Auto) Neut # (Auto) Lymph # (Auto) [place] # (Auto) Eos # (Auto) Baso # (Auto) Sodium Potassium Chloride Carbon Dioxide Anion Gap BUN Creatinine Est GFR ( Amer) Est GFR (Non-Af Amer) POC Glucose (mg/dL) 178 H 154 H 120 H Random Glucose Calcium Phosphorus Magnesium Total Bilirubin AST ALT Alkaline Phosphatase Total Protein Albumin Globulin Albumin/Globulin Ratio 11/30/17 11/30/17 11/30/17 11:07 16:28 21:30 WBC RBC Hgb Hct MCV MCH MCHC RDW Plt Count MPV Neut % (Auto) Lymph % (Auto) [place] % (Auto) Eos % (Auto) Baso % (Auto) Neut # (Auto) Lymph # (Auto) [place] # (Auto) Eos # (Auto) Baso # (Auto) Sodium Potassium Chloride Carbon Dioxide Anion Gap BUN Creatinine Est GFR ( Amer) Est GFR (Non-Af Amer) POC Glucose (mg/dL) 117 H 131 H 161 H Random Glucose Calcium Phosphorus Magnesium Total Bilirubin AST ALT Alkaline Phosphatase Total Protein Albumin Globulin Albumin/Globulin Ratio 12/01/17 12/01/17 12/01/17 07:25 11:26 16:06 WBC RBC Hgb Hct MCV MCH MCHC RDW Plt Count MPV Neut % (Auto) Lymph % (Auto) [place] % (Auto) Eos % (Auto) Baso % (Auto) Neut # (Auto) Lymph # (Auto) [place] # (Auto) Eos # (Auto) Baso # (Auto) Sodium Potassium Chloride Carbon Dioxide Anion Gap BUN Creatinine Est GFR ( Amer) Est GFR (Non-Af Amer) POC Glucose (mg/dL) 106 107 148 H Random Glucose Calcium Phosphorus Magnesium Total Bilirubin AST ALT Alkaline Phosphatase Total Protein Albumin Globulin Albumin/Globulin Ratio 12/01/17 12/02/17 12/02/17 21:28 07:19 08:24 WBC 6.0 RBC 3.98 Hgb 11.6 Hct 34.7 MCV 87.1 MCH 29.1 MCHC 33.5 RDW 15.4 H Plt Count 333 MPV 9.6 Neut % (Auto) 56.2 Lymph % (Auto) 33.1 [place] % (Auto) 7.9 Eos % (Auto) 1.7 Baso % (Auto) 1.1 Neut # (Auto) 3.4 Lymph # (Auto) 2.0 [place] # (Auto) 0.5 Eos # (Auto) 0.1 Baso # (Auto) 0.1 Sodium Potassium Chloride Carbon Dioxide Anion Gap BUN Creatinine Est GFR ( Amer) Est GFR (Non-Af Amer) POC Glucose (mg/dL) 124 H 87 Random Glucose Calcium Phosphorus Magnesium Total Bilirubin AST ALT Alkaline Phosphatase Total Protein Albumin Globulin Albumin/Globulin Ratio 12/02/17 08:24 WBC RBC Hgb Hct MCV MCH MCHC RDW Plt Count MPV Neut % (Auto) Lymph % (Auto) [place] % (Auto) Eos % (Auto) Baso % (Auto) Neut # (Auto) Lymph # (Auto) [place] # (Auto) Eos # (Auto) Baso # (Auto) Sodium 145 Potassium 3.3 L Chloride 113 H Carbon Dioxide 22 Anion Gap 13 BUN 7 Creatinine 0.6 L Est GFR ( Amer) > 60 Est GFR (Non-Af Amer) > 60 POC Glucose (mg/dL) Random Glucose 92 Calcium 9.2 Phosphorus 1.3 L Magnesium 1.6 Total Bilirubin 0.5 AST 21 ALT 19 Alkaline Phosphatase 42 Total Protein 6.0 L Albumin 3.1 L D Globulin 2.8 Albumin/Globulin Ratio 1.1 Assessment & Plan - Assessment and Plan (Free Text) Assessment: Palliative consult FULL CODE, there is no Advance directive n chart, PPS 40% I reviewed all medical records and diagnostic studies, examined and interviewed patient in the bed. Patient is alert, but altered with speech that is clear. Patient was sitting at the edge of the bed. I tried to stand her up and her knees become shaky. Patient knew she was at the hospital but was not sure why and when she came here. Patient did not know the year or date and could not remember if the family was visiting or would they come in today. Chyna asked about appetite patient just smiled and was not sure what she ate for breakfast. I opened Ensure and offered it to her. BP 142/90, HR 96, O2 Sat 98 % RA WBC 4.9, Hb 9.9, Ca 8.4 down from 9.1, Phosph low at 1.3, Mg low 1.2 and Albumin low 2.3, K 2.8 KCL IV on board. Rudy CENTENO stated today. Patient takes Remeron W HS Per nursing patient had no acute overnight events. I called patient's son Barry at left voice mail asking for call back to schedule family meeting for goals of care discussion. Impression * Chronically ill lady with pronounced confusion and forgetfulness * Weakness * Unsteady gait * Malnutrition * Weigh loss * Modest electrolyte imbalance Suggestion * Would refer to Psych for evaluation on confusion * Promote safety * PT eval * Would consider True counts X 3 days and referral to dietitian * Correct electrolyte imbalance I will continue to fallow up with family for goals of care discussion.
--- NOTE | 2017-12-02 16:51 | CARD ---
APPROVED REPORT Date of service: 11/29/2017 EKG Measurement Heart [id number] <Conclusion> Normal sinus rhythm Normal ECG
[2017-12-03] MEDS: Dextrose 5%/0.9% NS 1,000 ML IV SCH ×3 (04:00→13:24)
[2017-12-03 07:05] LABS: BASO % 0.5 % (0.0-2.0); EOS # 0.2 K/uL (0.0-0.7); EOS % 3.1 % (0.0-4.0); HEMOGLOBIN 9.9 g/dL (11.0-16.0); MEAN CELL VOLUME 85.9 fL (81.0-99.0); MEAN CORPUSCULAR HEMOGLOBIN 29.1 pg (27.0-31.0); MEAN CORPUSCULAR HGB CONC 33.8 g/dL (33.0-37.0); MEAN PLATELET VOLUME 8.7 fL (7.2-11.7); MONO # 0.6 K/uL (0.0-0.8); MONO % 9.4 % (0.0-10.0); NEUT # 3.1 K/uL (1.8-7.0); RBC 3.39 Mil/uL (3.80-5.20); RED CELL DISTRIBUTION WIDTH 15.7 % (11.5-14.5); WHITE BLOOD COUNT 5.9 K/uL (4.8-10.8)
[2017-12-03 07:20] LABS: IRON 24 ug/dL (37-170)
[2017-12-03 07:30] LABS: % IRON SATURATION 15 (20-55); TOTAL IRON BINDING CAPACITY 152 ug/dL (250-450)
[2017-12-03 07:51] LABS: ALB/GLOB RATIO 0.9 (1.0-2.1); ALBUMIN 2.5 g/dL (3.5-5.0); ALT/SGPT 22 U/L (9-52); AST/SGOT 18 U/L (14-36); BLOOD UREA NITROGEN 5 mg/dL (7-17); CALCIUM 8.9 mg/dl (8.6-10.4); GFR AFRICAN-AMERICAN > 60; GFR NON-AFRICAN AMERICAN > 60
[2017-12-03] MEDS: Potassium Chloride 20 mEq ER Tab PO SCH (09:28)
[2017-12-03] MEDS ORDERED: Magnesium Sulfate 1 gm in D5W 1 GM/100 ML BAG IVPB ONE ×2 (10:05→13:00)
[2017-12-03] MEDS ORDERED: Magnesium Hydroxide Susp 30 ml UD PO ONE ×2 (10:06→12:00)
--- NOTE | 2017-12-03 10:59 | CP.PCM.DIS ---
<Brii Ibrahim - Last Filed: 12/03/17 18:37> Provider - Provider Date of Admission: 12/01/17 16:21 Attending physician: Zeeshan Smith DO Primary care physician: Dr. Patterson Consults: palliative, stone belt sander, PT, OT Time Spent in preparation of Discharge (in minutes): 45 Diagnosis - Discharge Diagnosis (1) Hypoglycemia Status: Resolved Priority: High (2) Malnutrition Status: Acute Priority: High (3) Constipation Status: Acute Priority: Medium (4) Dementia Status: Chronic Priority: Medium (5) Anemia Status: Chronic Priority: Medium (6) Fibroadenoma of left breast Status: Chronic Priority: Medium (7) Renal cysts, acquired, bilateral Status: Chronic Priority: Low Hospital Course - Lab Results Lab Results: Micro Results 11/29/17 17:47 Urine Urine Culture - Final No Growth (<1,000 CFU/ML) Most Recent Lab Values WBC 5.9 K/uL (4.8-10.8) 12/03/17 06:55 RBC 3.39 Mil/uL (3.80-5.20) L 12/03/17 06:55 Hgb 9.9 g/dL (11.0-16.0) L 12/03/17 06:55 Hct 29.1 % (34.0-47.0) L 12/03/17 06:55 MCV 85.9 fL (81.0-99.0) 12/03/17 06:55 MCH 29.1 pg (27.0-31.0) 12/03/17 06:55 MCHC 33.8 g/dL (33.0-37.0) 12/03/17 06:55 RDW 15.7 % (11.5-14.5) H 12/03/17 06:55 Plt Count 305 K/uL (130-400) 12/03/17 06:55 MPV 8.7 fL (7.2-11.7) 12/03/17 06:55 Neut % (Auto) 53.0 % (50.0-75.0) 12/03/17 06:55 Lymph % (Auto) 34.0 % (20.0-40.0) 12/03/17 06:55 [place] % (Auto) 9.4 % (0.0-10.0) 12/03/17 06:55 Eos % (Auto) 3.1 % (0.0-4.0) 12/03/17 06:55 Baso % (Auto) 0.5 % (0.0-2.0) 12/03/17 06:55 Neut # (Auto) 3.1 K/uL (1.8-7.0) 12/03/17 06:55 Lymph # (Auto) 2.0 K/uL (1.0-4.3) 12/03/17 06:55 [place] # (Auto) 0.6 K/uL (0.0-0.8) 12/03/17 06:55 Eos # (Auto) 0.2 K/uL (0.0-0.7) 12/03/17 06:55 Baso # (Auto) 0.0 K/uL (0.0-0.2) 12/03/17 06:55 Sodium 145 mmol/L (132-148) 12/03/17 06:55 Potassium 3.8 mmol/L (3.6-5.2) 12/03/17 06:55 Chloride 112 mmol/L (98-107) H 12/03/17 06:55 Carbon Dioxide 25 mmol/L (22-30) 12/03/17 06:55 Anion Gap 11 (10-20) 12/03/17 06:55 BUN 5 mg/dL (7-17) L 12/03/17 06:55 Creatinine 0.6 mg/dL (0.7-1.2) L 12/03/17 06:55 Est GFR ( Amer) > 60 12/03/17 06:55 Est GFR (Non-Af Amer) > 60 12/03/17 06:55 POC Glucose (mg/dL) 90 mg/dL (65-110) 12/03/17 07:19 Random Glucose 81 mg/dL (65-105) 12/03/17 06:55 Calcium 8.9 mg/dl (8.6-10.4) 12/03/17 06:55 Phosphorus 2.3 mg/dL (2.5-4.5) L 12/03/17 06:55 Magnesium 1.5 mg/dL (1.6-2.3) L 12/03/17 06:55 Iron 24 ug/dL (37-170) L 12/03/17 06:55 TIBC 152 ug/dL (250-450) L 12/03/17 06:55 % Saturation 15 (20-55) L 12/03/17 06:55 Transferrin 85.95 mg/dL (206-381) L 12/03/17 06:55 Ferritin 150.0 ng/mL 12/03/17 06:55 Total Bilirubin 0.3 mg/dL (0.2-1.3) 12/03/17 06:55 AST 18 U/L (14-36) 12/03/17 06:55 ALT 22 U/L (9-52) 12/03/17 06:55 Alkaline Phosphatase 39 U/L (38-126) 12/03/17 06:55 Troponin I < 0.0120 ng/mL (0.00-0.120) 11/30/17 02:44 Total Protein 5.2 g/dL (6.3-8.3) L 12/03/17 06:55 Albumin 2.5 g/dL (3.5-5.0) L 12/03/17 06:55 Globulin 2.7 gm/dL (2.2-3.9) 12/03/17 06:55 Albumin/Globulin Ratio 0.9 (1.0-2.1) L 12/03/17 06:55 Lipase 36 U/L (23-300) 11/29/17 15:11 Carcinoembryonic Ag 1.7 ng/mL (0-3.0) 12/02/17 16:26 CA 19-9 Antigen < 1.4 U/mL (0-37) 12/02/17 16:26 CA 125 Antigen 7.9 U/mL (0-35) 12/02/17 16:26 TSH 3rd Generation 1.06 mIU/L (0.46-4.68) 11/29/17 15:11 Urine Color Yellow (YELLOW) 11/29/17 17:47 Urine Clarity Clear (Clear) 11/29/17 17:47 Urine pH 6.0 (5.0-8.0) 11/29/17 17:47 Ur Specific [place] 1.011 (1.003-1.030) 11/29/17 17:47 Urine Protein Negative mg/dL (NEGATIVE) 11/29/17 17:47 Urine Glucose (UA) Normal mg/dL (Normal) 11/29/17 17:47 Urine Ketones 2+ mg/dL (NEGATIVE) H 11/29/17 17:47 Urine Blood Trace (NEGATIVE) H 11/29/17 17:47 Urine Nitrate Negative (NEGATIVE) 11/29/17 17:47 Urine Bilirubin Negative (NEGATIVE) 11/29/17 17:47 Urine Urobilinogen Normal mg/dL (0.2-1.0) 11/29/17 17:47 Ur Leukocyte Esterase Neg Diya/uL (Negative) 11/29/17 17:47 Urine WBC (Auto) 1 /hpf (0-5) 11/29/17 17:47 Urine RBC (Auto) 1 /hpf (0-3) 11/29/17 17:47 Ur Squamous Epith Cells 2 /hpf (0-5) 11/29/17 17:47 Urine Bacteria Rare (<OCC) 11/29/17 17:47 - Hospital Course Hospital Course: Patient is a 72 year old female with past medical history of hypothyroidism, dementia, constipation presenting with chief complaint of weakness over the past few months. This has been accompanied by loss of appetite and weight loss. Patient states that she is unable to complete normal activities as she used to. Today, patient was unable to get out of bed, which prompted her arrival to the ED. Denies falls or recent trauma. Denies fevers, chills, headache, dizziness, chest pain, shortness of breath, abdominal pain, changes in bowel movements, dysuria. Medical records from patient's visits to [facility] were obtained. She has had several recent ED visits and admissions for weakness and anorexia. She has had recent UTIs. Additionally, the patient was previously admitted to the psychiatry unit (most recently in 2016) with psychosis, specifically paranoid delusions and auditory hallucinations. The patient did not exhibit any signs or symptoms of psychosis during this hospitalization. Upon admission, patient was found to be hypoglycemia with a BG of 45. Patient had several electrolyte abnormalities, which were repleted. UA revealed ketones without glucose. Additionally, patient had decreased albumin and total protein. CT head was negative for acute pathology. Work-up of breast mass and renal cysts were negative for malignancies. Tumor markers measured were wnl as well. She was given oral dextrose and started on IVF D5. PT evaluated and worked with the patient during her admission. Initially, the patient had a flat affect with poor eye contact; this improved somewhat by the time of discharge- patient was more able to engage in a conversation. Palliative nurse practitioner was consulted and had an extensive discussion with the patient and her family. Upon discharge, the patient was eating approximately 50% of her meals. She was drinking 2-3 Ensures daily. Her glucose was stable. Her weakness has improved. She was still disoriented to place and time. She will go home with services and in-home PT. She was continue to follow-up with Dr. Patterson as an outpatient. Discharge Exam - Head Exam Head Exam: ATRAUMATIC, NORMAL INSPECTION, NORMOCEPHALIC - Eye Exam Eye Exam: EOMI, Normal appearance, PERRL - ENT Exam ENT Exam: Mucous Membranes Moist, Normal Exam - Neck Exam Neck exam: Normal Inspection - Respiratory Exam Respiratory Exam: Clear to PA & Lateral, NORMAL BREATHING PATTERN, UNREMARKABLE - Cardiovascular Exam Cardiovascular Exam: REGULAR RHYTHM, +S1, +S2 - GI/Abdominal Exam GI & Abdominal Exam: Normal Bowel Sounds, Soft, Unremarkable. absent: Tenderness - Rectal Exam Rectal Exam: Deferred - Extremities Exam Extremities exam: normal capillary refill, normal inspection, pedal pulses present - Back Exam Back exam: NORMAL INSPECTION - Neurological Exam Neurological exam: Alert Additional comments: oriented to person only - Psychiatric Exam Psychiatric exam: Depressed, Flat Affect - Skin Skin Exam: Dry, Intact, Normal Color, Warm Discharge Plan - Discharge Medications Prescriptions: Cinacalcet [Sensipar] 60 mg PO DAILY #30 tab Ferrous Sulfate [Feosol] 325 mg PO DAILY #30 tab Megestrol [Megace] 40 mg PO DAILY #30 tab Memantine [Namenda] 10 mg PO BID #60 tab Mirtazapine [Remeron] 15 mg PO HS #30 tab Polyethylene Glycol 3350 [Miralax] 17 gm PO DAILY #30 packet - Follow Up Plan Condition: FAIR Disposition: DISCHARGED TO HOME CARE Patient education suggested?: Yes Instructions: Constipation (DC), Constipation (GEN) Additional Instructions: Patient is cleared for discharge as per Dr. Smith. Patient's family prefer to take the patient back home rather than pursue subacute rehab placement. Patient will return home with home care services for disease and medicine management with home PT. Patient is encouraged to eat well and drink 2 Ensures daily. She is also encouraged to remain active, up and out of bed during the day. Patient will continue to see her primary care provider, Dr. Patterson, on a monthly basis. Patient will be discharged with the following prescriptions: Megace 40 mg- take one by mouth daily Sensipar 60 mg- take one by mouth daily Ferrous sulfate 325 mg- take one by mouth daily Miralax 17 g- take one mixed with 4-8 oz of liquid (water, juice, tea, etc.) once daily Memantine 10 mg- take one by mouth twice a day Remeron 15 mg- take one by mouth nightly These are the only medications she should be taking unless Dr. Patterson says otherwise. If symptoms recur or worsen, patient and her family were instructed to return to the ED. Referrals: Chelsie Patterson MD [Staff Provider] - <Zeeshan Smith - Last Filed: 12/04/17 07:39> Provider - Provider Date of Admission: 12/01/17 16:21 Attending physician: Zeeshan Smith DO Hospital Course - Lab Results Lab Results: Micro Results 11/29/17 17:47 Urine Urine Culture - Final No Growth (<1,000 CFU/ML) Most Recent Lab Values WBC 5.9 K/uL (4.8-10.8) 12/03/17 06:55 RBC 3.39 Mil/uL (3.80-5.20) L 12/03/17 06:55 Hgb 9.9 g/dL (11.0-16.0) L 12/03/17 06:55 Hct 29.1 % (34.0-47.0) L 12/03/17 06:55 MCV 85.9 fL (81.0-99.0) 12/03/17 06:55 MCH 29.1 pg (27.0-31.0) 12/03/17 06:55 MCHC 33.8 g/dL (33.0-37.0) 12/03/17 06:55 RDW 15.7 % (11.5-14.5) H 12/03/17 06:55 Plt Count 305 K/uL (130-400) 12/03/17 06:55 MPV 8.7 fL (7.2-11.7) 12/03/17 06:55 Neut % (Auto) 53.0 % (50.0-75.0) 12/03/17 06:55 Lymph % (Auto) 34.0 % (20.0-40.0) 12/03/17 06:55 [place] % (Auto) 9.4 % (0.0-10.0) 12/03/17 06:55 Eos % (Auto) 3.1 % (0.0-4.0) 12/03/17 06:55 Baso % (Auto) 0.5 % (0.0-2.0) 12/03/17 06:55 Neut # (Auto) 3.1 K/uL (1.8-7.0) 12/03/17 06:55 Lymph # (Auto) 2.0 K/uL (1.0-4.3) 12/03/17 06:55 [place] # (Auto) 0.6 K/uL (0.0-0.8) 12/03/17 06:55 Eos # (Auto) 0.2 K/uL (0.0-0.7) 12/03/17 06:55 Baso # (Auto) 0.0 K/uL (0.0-0.2) 12/03/17 06:55 Sodium 145 mmol/L (132-148) 12/03/17 06:55 Potassium 3.8 mmol/L (3.6-5.2) 12/03/17 06:55 Chloride 112 mmol/L (98-107) H 12/03/17 06:55 Carbon Dioxide 25 mmol/L (22-30) 12/03/17 06:55 Anion Gap 11 (10-20) 12/03/17 06:55 BUN 5 mg/dL (7-17) L 12/03/17 06:55 Creatinine 0.6 mg/dL (0.7-1.2) L 12/03/17 06:55 Est GFR ( Amer) > 60 12/03/17 06:55 Est GFR (Non-Af Amer) > 60 12/03/17 06:55 POC Glucose (mg/dL) 123 mg/dL (65-110) H 12/03/17 16:45 Random Glucose 81 mg/dL (65-105) 12/03/17 06:55 Calcium 8.9 mg/dl (8.6-10.4) 12/03/17 06:55 Phosphorus 2.3 mg/dL (2.5-4.5) L 12/03/17 06:55 Magnesium 1.5 mg/dL (1.6-2.3) L 12/03/17 06:55 Iron 24 ug/dL (37-170) L 12/03/17 06:55 TIBC 152 ug/dL (250-450) L 12/03/17 06:55 % Saturation 15 (20-55) L 12/03/17 06:55 Transferrin 85.95 mg/dL (206-381) L 12/03/17 06:55 Ferritin 150.0 ng/mL 12/03/17 06:55 Total Bilirubin 0.3 mg/dL (0.2-1.3) 12/03/17 06:55 AST 18 U/L (14-36) 12/03/17 06:55 ALT 22 U/L (9-52) 12/03/17 06:55 Alkaline Phosphatase 39 U/L (38-126) 12/03/17 06:55 Troponin I < 0.0120 ng/mL (0.00-0.120) 11/30/17 02:44 Total Protein 5.2 g/dL (6.3-8.3) L 12/03/17 06:55 Albumin 2.5 g/dL (3.5-5.0) L 12/03/17 06:55 Globulin 2.7 gm/dL (2.2-3.9) 12/03/17 06:55 Albumin/Globulin Ratio 0.9 (1.0-2.1) L 12/03/17 06:55 Lipase 36 U/L (23-300) 11/29/17 15:11 Carcinoembryonic Ag 1.7 ng/mL (0-3.0) 12/02/17 16:26 CA 19-9 Antigen < 1.4 U/mL (0-37) 12/02/17 16:26 CA 125 Antigen 7.9 U/mL (0-35) 12/02/17 16:26 TSH 3rd Generation 1.06 mIU/L (0.46-4.68) 11/29/17 15:11 Urine Color Yellow (YELLOW) 11/29/17 17:47 Urine Clarity Clear (Clear) 08/18/18 17:47 Urine pH 6.0 (5.0-8.0) 11/29/17 17:47 Ur Specific [place] 1.011 (1.003-1.030) 11/29/17 17:47 Urine Protein Negative mg/dL (NEGATIVE) 11/29/17 17:47 Urine Glucose (UA) Normal mg/dL (Normal) 11/29/17 17:47 Urine Ketones 2+ mg/dL (NEGATIVE) H 11/29/17 17:47 Urine Blood Trace (NEGATIVE) H 11/29/17 17:47 Urine Nitrate Negative (NEGATIVE) 11/29/17 17:47 Urine Bilirubin Negative (NEGATIVE) 11/29/17 17:47 Urine Urobilinogen Normal mg/dL (0.2-1.0) 11/29/17 17:47 Ur Leukocyte Esterase Neg Diya/uL (Negative) 11/29/17 17:47 Urine WBC (Auto) 1 /hpf (0-5) 11/29/17 17:47 Urine RBC (Auto) 1 /hpf (0-3) 11/29/17 17:47 Ur Squamous Epith Cells 2 /hpf (0-5) 11/29/17 17:47 Urine Bacteria Rare (<OCC) 11/29/17 17:47 Attending/Attestation - Attestation I have personally seen and examined this patient.: Yes I have fully participated in the care of the patient.: Yes I have reviewed all pertinent clinical information, including history, physical exam and plan: Yes Notes (Text): 12/04/17 07:39 Medical attending: Patient was seen and examined by me, the patient was seen with the medical residents. I reviewed the above note by medical/surgery registered nurse and agree with the above. As mentioned above in the resident note this is a 72-year-old female who is brought in by family members due to weakness. In the emergency room she was found to have a very low blood sugar. Initially there was some thought that she had a history of diabetes and possibly could've taken to which diabetes medication however further review of the history showed that she does not have diabetes. She was being worked up by her primary care physician for weakness and had already had a colonoscopy. Biopsies were done during the colonoscopy and biopsies were benign she did have ketones in her urine and she did not have any sugar she had a low protein as well as a low serum albumen. The patient reported that she did not have appetite, she did not feel like eating. The first day we saw her we noticed that she apparently was eating very little of her breakfast. She did have an elevated calcium level. And there was some concern that maybe the patient had an underlying malignancy. She had a CAT scan of the abdomen and pelvis, a CT scan of the head both these were stable. She also had ultrasound of the breast as well and these results were stable. We also went ahead and ran some tumor markers including CEA, CA-19-9, CA-125 and these were all negative as well her TSH was also stable So at this time we have placed the patient on Megace. The patient will be discharged to home. She'll need to continue follow-up with her primary care physician Thank you very much, Zeeshan Smith
[2017-12-03] MEDS ORDERED: POLYETHYLENE GLYCOL 3350 17 GM/Dose PACKET PO SCH (11:00)
[2017-12-03 17:27] VITALS: BP 113/67; PULSE 79; TEMP 99.3; O2SAT 98
== END 2017-12-03 20:15 | disposition home health service (06) | DRG 641 ==
LOC: C.ER 12:33 → C.9E 18:00 → C.3T 21:41 → OBSVTOIN 12-01 16:21
PROVIDERS: ADMIT Hospitalist; ATTEND Hospitalist
DX: E16.2 Hypoglycemia, unspecified (principal); E46 Unspecified protein-calorie malnutrition; E86.0 Dehydration; E87.6 Hypokalemia; D24.2 Benign neoplasm of left breast; E03.9 Hypothyroidism, unspecified; D64.9 Anemia, unspecified; J44.9 Chronic obstructive pulmonary disease, unspecified; M62.81 Muscle weakness (generalized); K59.00 Constipation, unspecified; K57.30 Diverticulosis of large intestine without perforation or abscess without bleeding; K63.5 Polyp of colon; F03.90 Unspecified dementia, unspecified severity, without behavioral disturbance, psychotic disturbance, mood disturbance, and anxiety; F20.9 Schizophrenia, unspecified

== ENCOUNTER 2018-04-20 03:07 | Emergency (ER) | payer MEDICARE ==
[2018-04-20 03:08] VITALS: BMI 20.5
--- NOTE | 2018-04-20 03:34 | C.PDOC ---
History Of Present Illness 72 y/o female brought in by family for psychiatric evaluation secondary to worsening paranoia. Patient states that there is a man trying to kill her. She was seen yesterday at [facility] ER for the same complaint, and was discharged home. Otherwise she denies any suicidal or homicidal ideation. No medical complaints offered. <Cuong Alaniz Celsa - Last Filed: 04/20/18 04:43> History Per: Patient History/Exam Limitations: no limitations Onset/Duration Of Symptoms: Days Current Symptoms Are (Timing): Worse Reports Recently: Seen In ED Additional History Per: Family, Prior Records <CorbinCuong R - Last Filed: 04/20/18 04:43> <Rosalia Conklin - Last Filed: 04/20/18 11:18> Time Seen by Provider: 04/20/18 03:22 Chief Complaint (Nursing): Medical Clearance Past Medical History Reviewed: Historical Data, Nursing Documentation, Vital Signs - Medical History PMH: Alzheimer's Disease, Dementia, Hypothyroidism (NO MEDICATIONS PRESENTLY), Schizophrenia Denies: Diabetes, Fractures, Hepatitis, Chronic Kidney Disease, Seizures, Sexually Transmitted Disease Surgical History: Denies: Pacemaker Family History: States: Unknown Family Hx - Social History Hx Alcohol Use: No Hx Substance Use: No - Immunization History Hx Influenza Vaccination: Yes Hx Pneumococcal Vaccination: Yes <AlanizPadminiCuong R - Last Filed: 04/20/18 04:43> Vital Signs: Last Vital Signs Temp 98.9 F 04/20/18 07:30 Pulse 80 04/20/18 07:30 Resp 18 04/20/18 07:30 BP 137/74 04/20/18 07:30 Pulse Ox 97 04/20/18 07:30 <Rosalia Conklin - Last Filed: 04/20/18 11:18> Review Of Systems Constitutional: Negative for: Fever Cardiovascular: Negative for: Chest Pain Respiratory: Negative for: Shortness of Breath Gastrointestinal: Negative for: Vomiting, Abdominal Pain Neurological: Negative for: Weakness, Headache Psych: Positive for: Other (Paranoid thoughts). Negative for: Suicidal ideation <CorbinCuong R - Last Filed: 04/20/18 04:43> Physical Exam - Physical Exam Appears: Non-toxic, No Acute Distress Skin: Normal Color, Warm, Dry Head: Atraumatic, Normacephalic Eye(s): bilateral: Normal Inspection, PERRL, EOMI Neck: Normal ROM Chest: Symmetrical Cardiovascular: Rhythm Regular Respiratory: Normal Breath Sounds, No Rales, No Rhonchi, No Wheezing Gastrointestinal/Abdominal: Soft, No Tenderness, No Distention Extremity: Bilateral: Atraumatic, Normal Color And Temperature, Normal ROM Neurological/Psych: Oriented x3, Normal Speech <Cuong Alaniz R - Last Filed: 04/20/18 04:43> ED Course And Treatment - Laboratory Results Result Diagrams: 04/20/18 03:42 04/20/18 03:42 ECG: Interpreted By Me, Viewed By Me ECG Rhythm: Sinus Rhythm ECG Interpretation: Normal, No Acute Changes Interpretation Of ECG: NSR, norml tracing. Rate From EC Progress Note: Labs ordered for medical clearance. Patient was seen and evaluated by crisis. Discussed with production staff worker, patient will be screened by [facility].Patient had recent Chest X-ray done at [facility]. She is mediclly cleared. 0445H Reevaluation Time: 04:45 <Cuong Alaniz R - Last Filed: 04/20/18 04:43> - Laboratory Results Result Diagrams: 04/20/18 03:42 04/20/18 03:42 Lab Results: Total Bilirubin 0.7 mg/dL (0.2-1.3) 04/20/18 03:42 AST 25 U/L (14-36) 04/20/18 03:42 ALT 23 U/L (9-52) 04/20/18 03:42 Alkaline Phosphatase 60 U/L (38-126) 04/20/18 03:42 Total Protein 7.4 g/dL (6.3-8.3) 04/20/18 03:42 Albumin 4.1 g/dL (3.5-5.0) 04/20/18 03:42 Globulin 3.3 gm/dL (2.2-3.9) 04/20/18 03:42 Albumin/Globulin Ratio 1.2 (1.0-2.1) 04/20/18 03:42 Urine Color Yellow (YELLOW) 04/20/18 05:17 Urine Clarity Clear (Clear) 04/20/18 05:17 Urine pH 7.0 (5.0-8.0) 04/20/18 05:17 Ur Specific [place] 1.003 (1.003-1.030) 04/20/18 05:17 Urine Protein Negative mg/dL (NEGATIVE) 04/20/18 05:17 Urine Glucose (UA) Normal mg/dL (Normal) 04/20/18 05:17 Urine Ketones Negative mg/dL (NEGATIVE) 04/20/18 05:17 Urine Blood Negative (NEGATIVE) 04/20/18 05:17 Urine Nitrate Negative (NEGATIVE) 04/20/18 05:17 Urine Bilirubin Negative (NEGATIVE) 04/20/18 05:17 Urine Urobilinogen Normal mg/dL (0.2-1.0) 04/20/18 05:17 Ur Leukocyte Esterase 2+ Diya/uL (Negative) H 04/20/18 05:17 Urine WBC (Auto) 9 /hpf (0-5) H 04/20/18 05:17 Urine RBC (Auto) 2 /hpf (0-3) 04/20/18 05:17 Ur Squamous Epith Cells 8 /hpf (0-5) H 04/20/18 05:17 Urine Bacteria Rare (<OCC) 04/20/18 05:17 <Rosalia Conklin - Last Filed: 04/20/18 11:18> Medical Decision Making Medical Decision Making: Re-evaluation as patient was turned over to myself (Dr. Conklin) by Dr. Alaniz (overnight provider): * 10:44 - Spoke with Dr. Chowdhury (The patient's psychiatrist) and he requests to tell the daughter to bring the patient to his office this the after 10AM. He also requested to prescribe patient 2.5 mg of zyprexa for a week supply and melatonin to take at night. <Rosalia Conklin - Last Filed: 04/20/18 11:18> Disposition <Cuong Alaniz - Last Filed: 04/20/18 04:43> Counseled Patient/Family Regarding: Diagnosis, Need For Followup - Disposition Disposition Time: 11:13 - POA Present On Arrival: None <Rosalia Conklin - Last Filed: 04/20/18 11:18> - Disposition Referrals: Osito Nugent MD [Staff Provider] - Disposition: HOME/ ROUTINE Condition: STABLE Additional Instructions: NOA MEJIA, thank you for letting us take care of you today. Your provider was Rosalia Conklin MD and you were treated for NOT FEELING WELL. The emergency medical care you received today was directed at your acute symptoms. If you were prescribed any medication, please fill it and take as directed. It may take several days for your symptoms to resolve. Return to the Emergency Department if your symptoms worsen, do not improve, or if you have any other problems. Dr. Nugent has requested that you go to his office on April 23 after 12 pm for a follow up visist. Bring any paperwork you were given at discharge with you along with any medications you are taking to your follow up visit. Our treatment cannot replace ongoing medical care by a primary care provider outside of the emergency department. Thank you for allowing the [facility] team to be part of your care today. Prescriptions: OLANZapine [ZyPREXA] 2.5 mg PO HS #7 tab Instructions: Acute Psychosis (DC) Forms: [facility] (K[place]ovan), General Discharge Instructions - Clinical Impression Clinical Impression: Paranoia - Scribe Statement The provider has reviewed the documentation as recorded by the Xiomara Hinojosa Provider Attestation: All medical record entries made by the Tiffanyibsilvestre were at my direction and personally dictated by me. I have reviewed the chart and agree that the record accurately reflects my personal performance of the history, physical exam, medical decision making, and the department course for this patient. I have also personally directed, reviewed, and agree with the discharge instructions and disposition. <Cuong Alaniz - Last Filed: 04/20/18 04:43>
[2018-04-20 03:45] LABS: BASO # 0.1 K/uL (0.0-0.2); BASO % 0.7 % (0.0-2.0); EOS # 0.2 K/uL (0.0-0.7); EOS % 2.4 % (0.0-4.0); HEMOGLOBIN 12.1 g/dL (11.0-16.0); LYMPH # 1.5 K/uL (1.0-4.3); LYMPH % 17.6 % (20.0-40.0); MEAN CORPUSCULAR HEMOGLOBIN 28.4 pg (27.0-31.0); MEAN CORPUSCULAR HGB CONC 32.3 g/dL (33.0-37.0); MONO % 11.4 % (0.0-10.0); NEUT # 5.7 K/uL (1.8-7.0); NEUT % 67.9 % (50.0-75.0); RBC 4.25 Mil/uL (3.80-5.20); WHITE BLOOD COUNT 8.4 K/uL (4.8-10.8)
[2018-04-20 03:57] LABS: ALB/GLOB RATIO 1.2 (1.0-2.1); ALBUMIN 4.1 g/dL (3.5-5.0); ALT/SGPT 23 U/L (9-52); AST/SGOT 25 U/L (14-36); BLOOD UREA NITROGEN 18 mg/dL (7-17); CALCIUM 10.8 mg/dl (8.6-10.4); GFR NON-AFRICAN AMERICAN > 60
[2018-04-20 05:26] LABS: SQUAMOUS EPITHIAL 8 /hpf (0-5); URINE BACTERIA RARE (<OCC); URINE BILIRUBIN NEGATIVE (NEGATIVE); URINE BLOOD NEGATIVE (NEGATIVE); URINE CLARITY Clear (Clear); URINE COLOR Yellow (YELLOW); URINE GLUCOSE (UA) NORMAL (Normal); URINE LEUKOCYTE ESTERASE 2+ Leu/uL (Negative); URINE PROTEIN NEGATIVE (NEGATIVE); URINE UROBILINOGEN NORMAL mg/dL (0.2-1.0)
[2018-04-20 05:35] LABS: BARBITURATES, UR NEGATIVE (NEGATIVE); BENZODIAZEPINES, UR NEGATIVE (NEGATIVE); OPIATES, UR NEGATIVE (NEGATIVE); PHENCYCLIDINE, UR NEGATIVE (NEGATIVE)
[2018-04-20 08:26] VITALS: RESP 18; O2SAT 97
[2018-04-20 11:42] VITALS: BP 116/71; PULSE 92; TEMP 98.4
--- NOTE | 2018-04-20 16:07 | CARD ---
APPROVED REPORT Date of service: 04/20/2018 EKG Measurement Heart [id number] <Conclusion> Normal sinus rhythm Normal ECG
== END 2018-04-20 11:42 | disposition home or self-care (01) ==
LOC: C.ER 03:07
DX: F22 Delusional disorders (principal)
CPT/HCPCS: 80053; 81001; 83735; 84100; 85025; 93005; 99284; G0480